=== PATIENT | male | born 1965 | race Caucasian/White ===

== ENCOUNTER 2017-03-26 22:25 | Inpatient (IN) ==
[2017-03-27] MEDS ORDERED: Ondansetron ODT 4 MG TAB.RAPDIS SL PRN (01:09)
[2017-03-27] MEDS ORDERED: Naloxone 0.4 MG/ML INJ IVP PRN (01:09)
[2017-03-27] MEDS ORDERED: Acetaminophen 325 MG TABLET PO PRN (01:09)
[2017-03-27] MEDS ORDERED: *HR* Dextrose 50 % in Water (Syg) 50 ML SYRINGE IVP PRN (01:16)
[2017-03-27] MEDS ORDERED: D5% in Water 1,000 ML IVC PRN (01:16)
[2017-03-27] MEDS ORDERED: Dextrose Gel 15 GM PO PRN ×2 (01:16)
[2017-03-27] MEDS ORDERED: *HR* LORazepam 2 MG/ML VIAL IVP PRN ×3 (01:20)
[2017-03-27] MEDS ORDERED: *HR* Promethazine 25 MG/ML VIAL IVP PRN (01:20)
--- NOTE | 2017-03-27 01:31 | Internal Med History&Physical ---
<Jelani Chapman James - Last Filed: 03/27/17 01:26> Date of Encounter: 03/27/17 Time of Encounter: 01:26 Assessment and Plan (1) Acute kidney failure Current visit: Yes Status: Acute Mr. Lopez 52-year-old male with known diabetes and coronary artery disease and alcohol abuse presented to [facility] and was found to have creatinine of 12 and a GFR 4. His kidney function was not normal prior and are last recorded labs in 2016 demonstrated a GFR greater than 60 and a creatinine less than 1. Contributing factors: Patient admits to nausea, vomiting, diarrhea and poor oral intake for several days. Patient denies any abnormal ingestions, abnormal toxins or other exposures. He has been taking his medications including metformin as prescribed. Given the severe D of his acute kidney injury there is concern for prerenal injury and cannot rule out autoimmune. - Patient appears to be slightly fluid overloaded and not really appreciating dehydration. He has received 1 L normal saline. Plan: - Repeat CBC and CMP. - Urine sodium, urine osmolality, urine creatinine, urine protein - Strict intake and output monitoring - Avoid nephrotoxic medications and renally dose antibiotics - Renal ultrasound - Nephrology consult - Nothing by mouth now (2) Diabetes Current visit: Yes Status: Acute Patient has type 2 diabetes which he takes metformin and Lantus 4. Previous history of pancreatic cyst and post surgery he developed diabetes. - Glucose is stable. Plan: - Before meals at bedtime glucose checks - Nothing by mouth now, diabetic diet when patient is able to resume diet. (3) Coronary artery disease Current visit: Yes Status: Acute Patient is a history of coronary artery disease, coronary stents 2, risk factors include hypertension, hyperlipidemia, diabetes, significant family history of coronary artery disease. Plan: - Continue statin. (4) Hypertension Current visit: Yes Status: Acute Patient is a history of hypertension. Blood pressure was stable at the time of admission. Plan: - Due to renal failure will hold lisinopril and Cozaar - Continue calcium channel lonnie and beta lonnie. - 10 mg hydralazine IV every 6 hours when necessary for systolic blood pressure greater than 160 (5) Hyperlipidemia Current visit: Yes Status: Acute Stable. (6) Alcohol abuse Current visit: Yes Status: Acute Patient admits to drinking 1 quart of vodka and a 6 pack of beer per day. Previous history of withdrawals. Patient went through detox in 2013 but relapsed. Plan: - [facility] protocol - seizure precautions - monitor mental status (7) DVT prophylaxis Current visit: Yes Status: Acute SQ heparin 5000units Q8hrs Internal Medicine - H&P: HPI Chief complaint: low blood sugar Admitted From: Emergency Dept Plans for Post Hospital Care: Home History of present illness: Mr. Lopez is a 52 year old male pmhx CAD, Coronary stents X2, DM, HLD, HTN, alcohol abuse, previous tobacco abuse was transferred from [facility] after he was found to have a creatinine of 12 and a GFR of 4. He states that 4 days ago he was not feeling really well and had some abdominal discomfort and bloating that was associated with lack of appetite. He said the following morning he had nausea and vomiting and diarrhea. The diarrhea has persisted but has improved. He denies any recent nausea or vomiting but has not had an appetite and has not been drinking much water. He denies any changes in his diet but says he does not eat the best in his diet includes lunch meats and similar foods. He also drinks 1 pint of vodka and a 6 pack of beer daily. He has had withdrawals in the past and went through detox in 2014 but relapsed. He denies any history of renal failure or ever having to follow up with nephrology. He denies any recent illnesses, burning or blood in his urine. He denies any recent traumatic events including falling, laying on the ground for long periods of time or getting hit with any objects. He does not have any abnormal ingestions of chemical or different holistic products. He had associated symptoms of abdominal swelling and ankle swelling. Overall he has not been feeling himself for the last week. He states that he continues to have urinary output and did not really notice much difference. He quit smoking a month ago. Currently he denies any headaches, fevers, chills, change in vision, sore throat, chest pain palpitations shortness of breath muscle weakness or muscle cramping. He denies taking any NSAIDs or Tylenol recently. He has been using a decongestant daily for several weeks. Past Med Surg Social Fam HX - Past Medical History Medical history: COPD, coronary artery disease, diabetes, hyperlipidemia, hypertension, renal disease Psychiatric history: no psych history - Social History Smoking Status: Former smoker Smokeless Tobacco Status: No Alcohol use: heavy Drug use: none - Family History Father Living Status: Hx Family Cardiac Disorders: Yes Internal Medicine - H&P: Meds Aspirin [Lo-Dose Aspirin EC] 81 mg PO DAILY 03/27/17 [History] Lantus Solostar units 03/27/17 [History] Lexapro 20 mg PO DAILY 03/27/17 [History] Losartan Potassium [Cozaar] 100 mg PO DAILY 03/27/17 [History] Metoprolol [Lopressor] 100 mg PO BID 03/27/17 [History] Rosuvastatin [Crestor] 20 mg PO HS 03/27/17 [History] amLODIPine [Norvasc] 5 mg PO DAILY 03/27/17 [History] hydroCHLOROthiazide [Hydrochlorothiazide] 25 mg PO DAILY 03/27/17 [History] metFORMIN [Glucophage] 1,000 mg PO BIDWM 03/27/17 [History] Allergies Penicillins [PCN] Allergy (Verified 03/27/17 00:32) Rash All Systems PM: A 10-system review of systems was performed and is negative for pertinent findings except as documented above in the HPI. - Constitutional Constitutional: no chills, no fever(s), no night sweats - EENT Eyes: no change in vision, no discharge, no pain, no photophobia Ears: no ear discharge, no ear pain, no tinnitus Nose, mouth and throat: no dysphagia, no nasal discharge, no neck pain, no sore throat - Cardiovascular Cardiovascular ROS IM: no chest pain, no diaphoresis, no dyspnea, no lightheadedness, no palpitations, no syncope - Respiratory Respiratory: no cough, no dyspnea, no wheezing, no excessive phlegm production - Gastrointestinal Gastrointestinal: abdominal pain, bloating, diarrhea, nausea, vomiting, no hematemesis, no hematochezia, no melena - Genitourinary Genitourinary ROS male: no difficulty urinating, no hematuria, no nocturia, no urinary frequency, no urinary incontinence - Musculoskeletal Musculoskeletal ROS IM: no numbness, no tingling - Integumentary Integumentary IM: no rash, no unusual bruising - Neurological Neurological ROS: no confusion, no convulsions, no focal weakness, no numbness, no tingling, no tremor(s) - Psychiatric Psychiatric: no confusion, no depression - Hematologic/Lymphatic Hematologic/Lymphatic: no easy bruising - Constitutional Vitals: Temp Pulse Resp BP Pulse Ox 97.6 F 92 16 138/78 98 03/27/17 00:34 03/27/17 00:34 03/27/17 00:34 03/27/17 00:34 03/27/17 00:34 Exam: General: Patient alert, awake, oriented 3, interactive, in no acute distress HEENT: Normocephalic, atraumatic, pupils equal reactive to light, nasal cavity patent and open septum median position, oral mucosa moist, uvula midline, neck supple trachea midline no palpable lymphadenopathy, no thyromegaly. Chest: Symmetric bilateral correlating with respiratory effort, effort nonlabored. Cardiac: Regular rate and rhythm, positive S1 and S2. no bruits appreciated bilateral carotids, Radial pulses 2+ bilateral, posterior tibial and dorsal pedal pulses 2+ bilateral. Mild JVD bilaterally Respiratory: Clear to auscultation all lung moreno Abdomen: Soft, nontender, positive bowel sounds, no palpable masses appreciated on examination. No fluid wave Extremities: Symmetric bilateral, bilateral lower extremities with trace ankle edema. patient moving all 4 extremities spontaneously. Neurologic: No focal deficits appreciated on examination. Face symmetric, muscle strength symmetric bilateral upper and lower extremities. <MaloneyMeaganhumberto Hopper - Last Filed: 03/27/17 02:51> Date of Encounter: 03/27/17 Internal Medicine - H&P: HPI History of present illness: Mr. Lopez is a 52 year old male All Systems PM: A 10-system review of systems was performed and is negative for pertinent findings except as documented above in the HPI. - Constitutional Vitals: Temp Pulse Resp BP Pulse Ox 97.6 F 92 16 138/78 98 03/27/17 00:34 03/27/17 00:34 03/27/17 00:34 03/27/17 00:34 03/27/17 00:34 Internal Med - H&P Results - Labs CBC & Chem 7: 03/27/17 01:30 03/27/17 01:30 Labs: Short CBC 03/27/17 Range/Units 01:30 WBC 9.5 (4.3-11.1) K/mcL Hgb 12.1 L (12.9-16.9) g/dL Hct 36.1 L (37.5-50.1) % Plt Count 354 (140-400) K/mcL Neutrophils # 7.1 (1.6-8.9) K/mcL BMP 03/27/17 01:30 Sodium 132 L Potassium 5.6 H Chloride 101 Carbon Dioxide 13 L BUN 83 H Creatinine 12.04 H Glucose 165 H Calcium 9.2 Liver Function 03/27/17 Range/Units 01:30 Total Bilirubin 0.5 (0.2-1.2) mg/dL AST 18 (5-34) Units/L ALT 22 (0-55) Units/L Alkaline Phosphatase 53 (38-126) Units/L Albumin 3.3 L (3.5-5.0) g/dL - Attending Attestation I examined this patient and my medical decision-making was reviewed with the Resident Physician. I agree with the documented findings, disposition and treatment plan as described except to the extent set forth below. 52 yo with worsening abdominal and ankle swelling since saturday. Decreased urine output noted through the weekend. Presented to [facility] and found JACQUELINE. Suspect pre-renal and ATN. Reported some diarrhea prior. On anti-HTN, ARB, metformin ROS noted alcoholism. General - AAO x 3 Psych - Appropriate affect/speech. No agitation Eyes - YUNIEL. Eye lids intact. No scleral icterus ENT - Oral mucosa pink, dentition intact. External ear clear/dry/intact. No thyromegaly Lymphatics - No cervical/inguinal lympadenopathy Neuro - No gross peripheral or central neuro deficits with intact CN 2-12 exam Heart - Sinus. RRR. S1 and S2 present. No added HS/murmurs appreciated. No elevated JVD appreciated. +1 b/l LE calf edema Lung - Adequate air entry b/l, No crackes/wheezes appreciated GI - Soft, non-tender. Increase abdominal girth. No hepatosplenomegaly/ ascities. BS+ - No CVA/suprapubic tenderness or palpable bladder distension Skin - Intact. No rash/petechiae/ecchymosis. Warm extremities MSK - Joints with normal ROM. No joint swellings ROS 14 point review of systems reviewed. Pertinent positive or negative as per HPI or otherwise reviewed as negative A/P ATN - likely pre-renal - IVF - I/Os, garcia - consult renal - US doppler to r/o post-renal DMII - hold oral agent. ISS CAD s/p stent 2002 HTN
[2017-03-27 01:38] LABS: Basophils % 0.4 %; Eosinophils # 0.1 K/mcL (0.0-0.6); Eosinophils % 0.5 %; Hematocrit 36.1 % (37.5-50.1); Hemoglobin 12.1 g/dL (12.9-16.9); Immature Granulocytes % 0.5 % (0-4); Immature Platelets 3.8 % (1.1-6.1); Lymphocytes # 1.4 K/mcL (0.6-4.6); Lymphocytes % 14.7 %; Mean Corpuscular HGB Conc 33.5 g/dL (31.6-35.5); Mean Corpuscular Hemoglobin 32.4 pg (28.0-33.3); Mean Corpuscular Volume 96.5 fL (83.0-100.0); Mean Platelet Volume 10.1 fL (9.4-12.4); Monocytes # 0.8 K/mcL (0.0-1.3); Monocytes % 8.8 %; Neutrophils # 7.1 K/mcL (1.6-8.9); Platelet Count 354 K/mcL (140-400); Red Blood Count 3.74 M/mcL (4.19-5.50); Red Cell Distribution Width 13.6 % (11.5-14.5); Segmented Neutrophils % 75.1 %
[2017-03-27 01:53] LABS: Albumin 3.3 g/dL (3.5-5.0); Albumin/Globulin Ratio 0.9 (1.1-2.2); Bilirubin,Total 0.5 mg/dL (0.2-1.2); Calcium 9.2 mg/dL (8.6-10.8); Globulin 3.5 g/dL (2.4-3.5); Magnesium 1.5 mg/dL (1.6-2.6); Phosphorous 6.8 mg/dL (2.3-4.7); Total Protein 6.8 g/dL (6.0-8.3)
[2017-03-27 01:58] LABS: Potassium 5.6 mEq/L (3.5-4.5)
[2017-03-27] MEDS ORDERED: *HR* Dextrose 50 % in Water (Syg) 50 ML SYRINGE IVP ONE (03:08)
[2017-03-27] MEDS ORDERED: Insulin Human Regular 10 UNIT in 0.9 % Sodium Chloride 10 ML IV ONE (03:08)
[2017-03-27] MEDS ORDERED: Calcium Gluconate 2,000 MG in D5% in Water 100 ML IVPB ONE (03:09)
[2017-03-27] MEDS ORDERED: Magnesium Sulfate 2 GM in D5% in Water 100 ML IVPB ONE (03:10)
[2017-03-27] MEDS: 0.9 % Sodium Chloride 1,000 ML IVC SCH ×3 (04:21→21:28)
[2017-03-27] MEDS ORDERED: *HR* Heparin 5,000 UNIT/ML VIAL SQ SCH (06:00)
[2017-03-27 06:14] LABS: Basophils # 0.1 K/mcL (0.0-0.2); Basophils % 0.6 %; Eosinophils # 0.2 K/mcL (0.0-0.6); Eosinophils % 1.6 %; Hematocrit 33.9 % (37.5-50.1); Hemoglobin 11.4 g/dL (12.9-16.9); Immature Granulocytes % 0.4 % (0-4); Mean Corpuscular HGB Conc 33.6 g/dL (31.6-35.5); Mean Corpuscular Hemoglobin 32.1 pg (28.0-33.3); Mean Corpuscular Volume 95.5 fL (83.0-100.0); Mean Platelet Volume 10.1 fL (9.4-12.4); Monocytes # 1.3 K/mcL (0.0-1.3); Monocytes % 13.4 %; Neutrophils # 6.1 K/mcL (1.6-8.9); Platelet Count 315 K/mcL (140-400); Red Blood Count 3.55 M/mcL (4.19-5.50); Red Cell Distribution Width 13.5 % (11.5-14.5)
[2017-03-27 06:27] LABS: Albumin/Globulin Ratio 0.9 (1.1-2.2); Bilirubin,Total 0.4 mg/dL (0.2-1.2); Calcium 9.3 mg/dL (8.6-10.8); Globulin 3.2 g/dL (2.4-3.5); Magnesium 2.2 mg/dL (1.6-2.6); Total Protein 6.2 g/dL (6.0-8.3)
[2017-03-27 06:28] LABS: Potassium 4.4 mEq/L (3.5-4.5)
[2017-03-27] MEDS: Insulin LISPRO 300 UNITS/3 ML VIAL SQ SCH ×4 (07:44→20:50)
[2017-03-27] MEDS: amLODIPine 5 MG TABLET PO SCH (07:44)
[2017-03-27] MEDS: Metoprolol 100 MG TABLET PO SCH ×2 (07:44→20:43)
[2017-03-27] MEDS: Aspirin Enteric Coated 81 MG Tablet PO SCH (07:44)
[2017-03-27] MEDS: *HR* Heparin 5,000 UNIT/ML VIAL SQ SCH ×3 (07:45→23:25)
--- NOTE | 2017-03-27 08:50 | Nephrology Consult Note ---
Date of Encounter: 03/27/17 Time of Encounter: 08:48 Assessment and Plan (1) Acute kidney failure Current Visit: Yes Status: Acute The patient has a clinical picture of acute kidney injury in the setting of abdominal cramping several episodes of diarrhea and vomiting and decreased oral intake. During a. The patient continued to take his antihypertensive medications. Certainly his acute kidney injury could be related to decreased oral intake and GI losses and volume depletion while taking antihypertensive medications. Other etiologies need to be ruled out. Post renal obstruction needs to be ruled out. Intrinsic renal disease also needs to be ruled out. I requested a urinalysis to evaluate for hematuria and/or proteinuria. Renal ultrasound I believe has been done. In the meantime I would continue to keep the patient on maintenance IV fluids currently 125 mL per hour. ZECHARIAH inhibitor and angiotensin lonnie should be placed on hold. Nephrotoxins should be avoided. We will monitor the patient's renal function on a daily basis. Qualifiers: Acute renal failure type: unspecified Qualified Code(s): N17.9 - Acute kidney failure, unspecified (2) Coronary artery disease Current Visit: Yes Status: Acute Qualifiers: Coronary Disease-Associated Artery/Lesion type: sh[place] artery [place] vs. transplanted heart: shawnee heart Associated angina: without angina Qualified Code(s): I25.10 - Atherosclerotic heart disease of shawnee coronary artery without angina pectoris (3) Hypertension Current Visit: Yes Status: Acute Qualifiers: Hypertension type: essential hypertension Qualified Code(s): I10 - Essential (primary) hypertension (4) Hyperlipidemia Current Visit: Yes Status: Acute Qualifiers: Hyperlipidemia type: other hyperlipidemia Qualified Code(s): E78.4 - Other hyperlipidemia (5) Alcohol abuse Current Visit: Yes Status: Acute History of Present Illness - History of Present Illness I have made 3 visits to the patient's room. The first time he was in the bathroom. The last 2 times he was off the floor. I did have an opportunity speak to the patient's . The patient's reports that since this past Saturday the patient had developed some abdominal discomfort described as cramping pain. He thought he had some type of GI illness. She reports that he had 2 episodes of diarrhea and 2 episodes of vomiting. His appetite was poor. He eventually presented to the [facility] emergency room because of abdominal swelling or bloating along with swelling of the lower extremities and a blood sugar of 30. It was during that emergency room visit that the patient was noted to have a serum creatinine of approximately 12. He subsequently was sent to [place] admitted to the hospital for further evaluation. Review of previous labs shows that the patient had a creatinine of 0.99 on 03/12/2016. Medical records indicate he has a history of diabetes hypertension coronary disease and alcohol abuse. Additional history will be obtained when the patient returns to his room. Of note the patient will need to have a urinalysis done as soon as possible to see if he has any significant hematuria or proteinuria suggesting intrinsic renal disease. The patient was seen on this day at approximately 10 AM. Patient relates a history similar to above. He also states that over the past several days his oral intake had been less. He denies any use of any nonsteroidal anti- inflammatories. He does say he noticed a a slowing of the urinary stream over the past week. Currently he denies any abdominal pain nausea or vomiting. He denies any history of hematuria proteinuria or kidney stones. His father was on dialysis in the setting of what sounds like vascular disease and diabetes. His father subsequently . Patient denies any new medications over the past several months. He denies any skin rashes. 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 He relates no previous history of renal disease. He does have reported history of diabetes for the past 10 years or so. It is unclear if he has diabetic retinopathy. He also reports a history of hypertension. He did not check his blood pressure during the several days that he was ill and not eating or drinking normally. Past Med Surg Social Fam HX - Past Medical History Medical history: COPD, coronary artery disease, diabetes, hyperlipidemia, hypertension, renal disease Psychiatric history: no psych history - Social History Smoking Status: Former smoker Smokeless Tobacco Status: No Alcohol use: heavy Drug use: none - Family History Father Living Status: Hx Family Cardiac Disorders: Yes Medications and Allergies Aspirin [Lo-Dose Aspirin EC] 81 mg PO DAILY 03/27/17 [History] Lantus Solostar units 03/27/17 [History] Lexapro 20 mg PO DAILY 03/27/17 [History] Losartan Potassium [Cozaar] 100 mg PO DAILY 03/27/17 [History] Metoprolol [Lopressor] 100 mg PO BID 03/27/17 [History] Rosuvastatin [Crestor] 20 mg PO HS 03/27/17 [History] amLODIPine [Norvasc] 5 mg PO DAILY 03/27/17 [History] hydroCHLOROthiazide [Hydrochlorothiazide] 25 mg PO DAILY 03/27/17 [History] metFORMIN [Glucophage] 1,000 mg PO BIDWM 03/27/17 [History] Allergies Penicillins [PCN] Allergy (Verified 03/27/17 00:32) Rash Review of Systems Constitutional: as per HPI, weakness Eyes: bilateral: blurred vision (patient denies), diplopia (patient denies) Nose, mouth and throat: no dizziness, no headache(s) Cardiovascular: no chest pain, no palpitations Respiratory: no cough, no dyspnea Gastrointestinal: abdominal pain, bloating, cramping, no change in bowel habits Genitourinary Male: change in urinary stream Musculoskeletal: no muscle weakness, no numbness Integumentary: no hirsutism, no striae Neurological: as per HPI Psychiatric: no depression, no difficulty concentrating Endocrine: as per HPI Hematologic/Lymphatic: no easy bruising, no lymphadenopathy Exam - Vital Signs Vital signs: Initial Vital Signs Temp Pulse Resp BP Pulse Ox 97.6 F 92 16 138/78 98 03/27/17 00:34 03/27/17 00:34 03/27/17 00:34 03/27/17 00:34 03/27/17 00:34 Vital Signs - Last 8 Hours Temp Pulse Resp BP Pulse Ox 03/27/17 07:25 97.6 F 86 16 124/76 93 03/27/17 04:02 98.2 F 93 16 129/79 95 Intake and Output 03/26/17 03/27/17 03/27/17 23:59 07:59 15:59 Intake Total 0 / 0 Output Total 800 / 800 Balance -800 / -800 Intake: Oral 0 / 0 Output: Urine 800 / 800 Urethral (Rod) 300 / 300 Other: Weight 75.863 kg Blood Glucose* 126 Patient Weight 03/27/17 23:59 Weight 75.863 kg - General Appearance Exam: The patient is alert and oriented. He is in no acute distress. Vital signs are stable. Neck is supple. Lungs clear to auscultation. Heart regular rate and rhythm without any murmurs or S4 gallops clicks or rubs. Abdomen demonstrates normal bowel sounds. Abdomen is soft. There is no guarding or rigidity. There is mild generalized tenderness but nothing severe. Lower extremity show no peripheral edema. Skin shows no abnormal skin rashes. Results - Lab Results 03/27/17 06:05 03/27/17 06:05 Most recent lab results Calcium 9.3 mg/dL (8.6-10.8) 03/27/17 06:05 Phosphorus 6.8 mg/dL (2.3-4.7) H 03/27/17 01:30 Magnesium 2.2 mg/dL (1.6-2.6) 03/27/17 06:05 Consult Discharge Plan - Plan Referrals: Toby Shirley MD [Primary Care Provider] -
[2017-03-27 12:44] LABS: Bilirubin,Urine Negative (Negative); Blood,Urine Large (Negative); Clarity,Urine Cloudy (Clear); Color,Urine Yellow (Yellow); Glucose,Urine (UA) Normal (Normal); Ketones,Urine Negative (Negative); Leukocyte Esterase,Urine Trace (Negative); Nitrite,Urine Negative (Negative); Protein,Urine >=300 mg/dL (Neg-Trace); Specific Gravity,Urine 1.014 (1.010-1.025); Urobilinogen,Urine Normal (Normal)
[2017-03-27 12:46] LABS: Bacteria,Urine None Seen per hpf (None-Few); Hyaline Casts,Urine None Seen per lpf (None-Few); RBC,Urine TNTC per hpf (0-3); Squamous Epithelial Cell,Urine Many per lpf (None-Few); WBC,Urine 15-30 per hpf (0-3)
--- NOTE | 2017-03-27 15:09 | Internal Med Progress Note ---
<CorbydouglasJose mcfadden - Last Filed: 03/27/17 15:07> Date of Encounter: 03/27/17 Time of Encounter: 11:00 - Assessment and plan (1) Acute kidney failure Current Visit: Yes Status: Acute Assessment and plan: - BUN/creatinine of 83/11.76 this morning, mild improved since yesterday. Potassium 4.4 we will continue to monitor - Urology consulted, appreciate recommendations - Held lisinopril, metformin - Normal saline at 125 mL per hour - Renal ultrasound revealed no evidence for hydronephrosis - Urine labs obtained from [facility] relatively benign. Without Signs of infection , casts Qualifiers: Acute renal failure type: unspecified Qualified Code(s): N17.9 - Acute kidney failure, unspecified (2) Alcohol abuse Current Visit: Yes Status: Acute Assessment and plan: - CIWA protocol in place Patient is not currently required Ativan for sedation Patient states his last drink was Saturday (3) Diabetes Current Visit: Yes Status: Acute Assessment and plan: - Sliding insulin scale - Blood sugar this morning was 157 - He states he has been running hypoglycemic secondary to decreased oral intake in the past week Qualifiers: Diabetes mellitus type: type 2 Diabetes mellitus complication status: with unspecified complications 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 transplanted heart: [place] heart Associated angina: without angina Qualified Code(s): I25.10 - Atherosclerotic heart disease of [place] coronary artery without angina pectoris (5) DVT prophylaxis Current Visit: Yes Status: Acute Assessment and plan: Heparin 5000 units subcutaneously - Time Spent With Patient 25 - 35 minutes - Subjective Interval history: This note is not for billing purposes. Mr. Lopez was seen and examined at bedside this morning. He states that he is feeling good, with complaints only of mild lower extremity swelling and dysuria. He denies any symptoms of nausea , vomiting, diarrhea, fevers, chills. He does state that he has been experiencing some GI distress including vomiting and diarrhea for the past week before admission. He also states that he has not been eating well for the past week. He denies any history of heavy drinking, but states that his last drink was Saturday and it contained approximately 1/5 of vodka. He denies any history of alcohol withdrawals. - Constitutional Vitals: Temp Pulse Resp BP Pulse Ox 97.7 F 78 16 120/81 95 03/27/17 11:09 03/27/17 11:09 03/27/17 11:09 03/27/17 11:09 03/27/17 11:09 Exam: Gen.: Vitals noted. No acute distress. AAOx3 HEENT: PERRL/EOMI, oropharynx clear, Normocephalic, atraumatic Neck: Supple. No adenopathy. Cardiac: RRR, no murmur, +S1/S2 Pulmonary: Mild Rales in left middle. no wheezes, or rhonchi, equal chest expansion Abdomen: soft, mildly tender to palpation left lower quadrant, epigastric region , BS noted, no guarding Back: Mildly tender in left CVA MSK: ROM intact, no joint swelling noted Extremities: no evidence of BLE edema, nontender calf, no cyanosis or clubbing Neuro: A&Ox3, moves all extremities, no focal deficits Psych: Appropriate mood and behavior Internal Medicine: Result - Labs CBC & Chem 7: 03/27/17 06:05 03/27/17 06:05 Labs: Short CBC 03/27/17 03/27/17 Range/Units 01:30 06:05 WBC 9.5 9.6 (4.3-11.1) K/mcL Hgb 12.1 L 11.4 L (12.9-16.9) g/dL Hct 36.1 L 33.9 L (37.5-50.1) % Plt Count 354 315 (140-400) K/mcL Neutrophils # 7.1 6.1 (1.6-8.9) K/mcL BMP 03/27/17 03/27/17 01:30 06:05 Sodium 132 L 133 L Potassium 5.6 H 4.4 D Chloride 101 102 Carbon Dioxide 13 L 19 BUN 83 H 83 H Creatinine 12.04 H 11.76 H Glucose 165 H 157 H Calcium 9.2 9.3 Liver Function 03/27/17 03/27/17 Range/Units 01:30 06:05 Total Bilirubin 0.5 0.4 (0.2-1.2) mg/dL AST 18 16 (5-34) Units/L ALT 22 17 (0-55) Units/L Alkaline Phosphatase 53 49 (38-126) Units/L Albumin 3.3 L 3.0 L (3.5-5.0) g/dL Urine 03/27/17 Range/Units 12:25 Urine Color Yellow (Yellow) Urine Clarity Cloudy A (Clear) Urine pH 6.0 (5.0-8.0) pH Units Ur Specific [place] 1.014 (1.010-1.025) Urine Protein >=300 H (Neg-Trace) mg/dL Urine Glucose (UA) Normal (Normal) mg/dL - Impressions Impressions Retroperitoneum Ultrasound 03/27/17 08:30 IMPRESSION: No hydronephrosis noted to account for renal failure D/ / Ayan Garcia MD / Ayan Garcia MD Interpreting Provider: Ayan Garcia MD Consult Discharge Plan - Plan Referrals: Toby Shirley MD [Primary Care Provider] - (call appt. upon discharge) <Jose Argueta - Last Filed: 03/27/17 19:03> Date of Encounter: 03/27/17 - Constitutional Vitals: Temp Pulse Resp BP Pulse Ox 98.4 F 79 17 123/78 95 03/27/17 15:15 03/27/17 15:15 03/27/17 15:15 03/27/17 15:15 03/27/17 15:15 Internal Medicine: Result - Labs CBC & Chem 7: 03/27/17 06:05 03/27/17 06:05 Labs: Short CBC 03/27/17 03/27/17 Range/Units 01:30 06:05 WBC 9.5 9.6 (4.3-11.1) K/mcL Hgb 12.1 L 11.4 L (12.9-16.9) g/dL Hct 36.1 L 33.9 L (37.5-50.1) % Plt Count 354 315 (140-400) K/mcL Neutrophils # 7.1 6.1 (1.6-8.9) K/mcL BMP 03/27/17 03/27/17 01:30 06:05 Sodium 132 L 133 L Potassium 5.6 H 4.4 D Chloride 101 102 Carbon Dioxide 13 L 19 BUN 83 H 83 H Creatinine 12.04 H 11.76 H Glucose 165 H 157 H Calcium 9.2 9.3 Liver Function 03/27/17 03/27/17 Range/Units 01:30 06:05 Total Bilirubin 0.5 0.4 (0.2-1.2) mg/dL AST 18 16 (5-34) Units/L ALT 22 17 (0-55) Units/L Alkaline Phosphatase 53 49 (38-126) Units/L Albumin 3.3 L 3.0 L (3.5-5.0) g/dL Urine 03/27/17 Range/Units 12:25 Urine Color Yellow (Yellow) Urine Clarity Cloudy A (Clear) Urine pH 6.0 (5.0-8.0) pH Units Ur Specific [place] 1.014 (1.010-1.025) Urine Protein >=300 H (Neg-Trace) mg/dL Urine Glucose (UA) Normal (Normal) mg/dL - Impressions Impressions Retroperitoneum Ultrasound 03/27/17 08:30 IMPRESSION: No hydronephrosis noted to account for renal failure D/ / Ayan Garcia MD / Ayan Garcia MD Interpreting Provider: Ayan Garcia MD - Attending Attestation I examined this patient and my medical decision-making was reviewed with the Resident Physician on 03/27/17. I agree with the documented findings, disposition and treatment plan as described except to the extent set forth below. Pt was admitted earlier this AM for acute renal failure. He is currently in work up for causes and receiving IV fluids. Plan as detailed above and in H&P.
[2017-03-28 04:55] LABS: Basophils # 0.1 K/mcL (0.0-0.2); Basophils % 0.6 %; Eosinophils # 0.3 K/mcL (0.0-0.6); Eosinophils % 2.9 %; Hematocrit 33.3 % (37.5-50.1); Hemoglobin 11.1 g/dL (12.9-16.9); Immature Granulocytes % 0.5 % (0-4); Lymphocytes # 1.7 K/mcL (0.6-4.6); Lymphocytes % 16.8 %; Mean Corpuscular HGB Conc 33.3 g/dL (31.6-35.5); Mean Corpuscular Hemoglobin 32.3 pg (28.0-33.3); Mean Corpuscular Volume 96.8 fL (83.0-100.0); Mean Platelet Volume 10.5 fL (9.4-12.4); Monocytes # 1.3 K/mcL (0.0-1.3); Monocytes % 13.1 %; Neutrophils # 6.7 K/mcL (1.6-8.9); Platelet Count 324 K/mcL (140-400); Red Blood Count 3.44 M/mcL (4.19-5.50); Red Cell Distribution Width 13.8 % (11.5-14.5); Segmented Neutrophils % 66.1 %
[2017-03-28 05:13] LABS: Albumin 2.7 g/dL (3.5-5.0); Albumin/Globulin Ratio 0.8 (1.1-2.2); Bilirubin,Total 0.4 mg/dL (0.2-1.2); Calcium 8.4 mg/dL (8.6-10.8); Globulin 3.3 g/dL (2.4-3.5); Potassium 4.5 mEq/L (3.5-4.5)
[2017-03-28] MEDS: 0.9 % Sodium Chloride 1,000 ML IVC SCH ×3 (05:51→22:01)
--- NOTE | 2017-03-28 08:46 | Nephrology Progress Note ---
Date of Encounter: 03/28/17 Time of Encounter: 08:20 - Assessment and Plan (1) Acute kidney failure Current Visit: Yes Status: Acute JACQUELINE most likely related to decreased oral intake, volume depletion, continued use of antihypertensive and GI losses. Renal fct improving, creat 10.57. Documented urine output 1700cc last 24 hours. Continue IV fluids. Proteinuria, hematuria concerning for GN, will start GN workup. Qualifiers: Acute renal failure type: unspecified Qualified Code(s): N17.9 - Acute kidney failure, unspecified Subjective Interval history: Sitting up in bed, eating breakfast. at bedside. States feeling better. Denies diarrhea today. Rod with light barlow urine, no clots noted. Objective - Vital Signs Vital signs: Vital Signs Temp Pulse Resp BP Pulse Ox 03/28/17 08:22 97.7 F 78 17 131/80 96 03/28/17 04:21 97.9 F 75 16 114/72 91 03/28/17 00:36 97.6 F 75 16 102/64 91 03/27/17 20:30 97.4 F L 79 16 131/88 95 03/27/17 15:15 98.4 F 79 17 123/78 95 03/27/17 11:09 97.7 F 78 16 120/81 95 Intake and Output 03/27/17 03/28/17 03/28/17 23:59 07:59 15:59 Intake Total 900 / 900 900 / 900 Output Total 1000 / 1000 Balance 900 / 900 -100 / -100 Intake: IV Fluids 900 / 900 900 / 900 0.9 % Sodium Chloride 1, 900 / 900 900 / 900 000 ML @ 125 mls/hr IVC . Q8H [facility] Rx#:[id number] Oral 0 / 0 Output: Catheter 1000 / 1000 Other: Weight 76.5 kg Blood Glucose* 182 136 Patient Weight 03/28/17 23:59 Weight 76.5 kg - General Appearance General appearance: Present: well-developed, well-nourished, appears started age EENT: Present: mucous membranes moist Neck: Present: no JVD Respiratory: Present: clear Cardiology: Present: no edema, regular rate, regular rhythm Gastrointestinal: Present: normoactive bowel sounds, no tenderness, no guarding Integumentary: Present: warm and dry Neurologic: Present: alert and oriented x3 Psychiatric: Present: mood/affect appropriate, cooperative - Lab 03/28/17 04:16 03/28/17 04:16 Most recent lab results Calcium 8.4 mg/dL (8.6-10.8) L 03/28/17 04:16 Phosphorus 6.8 mg/dL (2.3-4.7) H 03/27/17 01:30 Magnesium 2.2 mg/dL (1.6-2.6) 03/27/17 06:05 Consult Discharge Plan - Plan Referrals: Toby Shirley MD [Primary Care Provider] - (call appt. upon discharge)
[2017-03-28] MEDS: Insulin LISPRO 300 UNITS/3 ML VIAL SQ SCH ×4 (09:23→20:36)
[2017-03-28] MEDS: Metoprolol 100 MG TABLET PO SCH ×2 (09:36→20:36)
[2017-03-28] MEDS: *HR* Heparin 5,000 UNIT/ML VIAL SQ SCH ×2 (09:36→17:03)
[2017-03-28] MEDS: Aspirin Enteric Coated 81 MG Tablet PO SCH (09:36)
[2017-03-28] MEDS: amLODIPine 5 MG TABLET PO SCH (09:36)
[2017-03-28 09:43] LABS: Hepatitis B Surface Antigen Nonreactive (Nonreactive)
[2017-03-28 12:22] LABS: Hepatitis B Surface Antigen Nonreactive (Nonreactive)
--- NOTE | 2017-03-28 15:03 | Internal Med Progress Note ---
<Jose De Souza - Last Filed: 03/28/17 15:00> Date of Encounter: 03/28/17 Time of Encounter: 11:00 - Assessment and plan (1) Acute kidney failure Current Visit: Yes Status: Acute Assessment and plan: - BUN/creatinine of 74/10.57 this morning, mild improved since yesterday, 83/ 11.76. Potassium 4.5 we will continue to monitor and hydrate - Urology consulted, appreciate recommendations. They have ordered additional testing to further evaluate cause of acute renal failure. - Red tinged urine in Rod catheter since yesterday evening, H&H stable at 11.1 /33.3, we will continue to monitor for time being. - Held lisinopril, metformin - Renal ultrasound revealed no evidence for hydronephrosis indicating postobstructive causes, he is normal in size indicating no fibrosis of the kidneys. - Urine labs obtained from [facility] relatively benign. Without Signs of infection , casts Qualifiers: Acute renal failure type: unspecified Qualified Code(s): N17.9 - Acute kidney failure, unspecified (2) Alcohol abuse Current Visit: Yes Status: Acute Assessment and plan: - CIWA protocol in place Patient is not currently required Ativan for sedation. 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 transplanted heart: [place] heart Associated angina: without angina Qualified Code(s): I25.10 - Atherosclerotic heart disease of [place] coronary artery without angina pectoris (5) DVT prophylaxis Current Visit: Yes Status: Acute Assessment and plan: Heparin 5000 units subcutaneously - Closely monitored given hematuria, H&H has been stable - Subjective Interval history: This note is not for billing purposes. Mr. Lopez was seen and examined at bedside this morning. He states he is doing quite well this morning. He denies any further episodes of nausea, vomiting, diarrhea. His Rod catheter continues to drain red tinged urine. We also asked him about his home Lexapro usage and he states he has not been taking it for his depression, however his believes that he is. He is agreeable to restarting it. - Constitutional Vitals: Temp Pulse Resp BP Pulse Ox 97.7 F 78 17 131/80 96 03/28/17 08:22 03/28/17 08:22 03/28/17 08:22 03/28/17 08:22 03/28/17 08:22 Exam: Gen.: Vitals noted. No acute distress. AAOx3 HEENT: PERRL/EOMI, oropharynx clear, Normocephalic, atraumatic Neck: Supple. No adenopathy. Cardiac: RRR, no murmur, +S1/S2 Pulmonary: CTA bilaterally, no wheezes, rales or rhonchi, equal chest expansion Abdomen: soft, nontender, BS noted, no guarding : Rod catheter in place with red tinged urine in bag. Back: Resolved right CVA tenderness. Nontender throughout. MSK: ROM intact, no joint swelling noted Extremities: no BLE edema, nontender calf, no cyanosis or clubbing Neuro: A&Ox3, moves all extremities, no focal deficits Psych: Appropriate mood and behavior Internal Medicine: Result - Labs CBC & Chem 7: 03/28/17 04:16 03/28/17 04:16 Labs: Short CBC 03/28/17 Range/Units 04:16 WBC 10.1 (4.3-11.1) K/mcL Hgb 11.1 L (12.9-16.9) g/dL Hct 33.3 L (37.5-50.1) % Plt Count 324 (140-400) K/mcL Neutrophils # 6.7 (1.6-8.9) K/mcL BMP 03/28/17 04:16 Sodium 135 L Potassium 4.5 Chloride 106 Carbon Dioxide 17 L BUN 74 H Creatinine 10.57 H Glucose 118 H Calcium 8.4 L Liver Function 03/28/17 Range/Units 04:16 Total Bilirubin 0.4 (0.2-1.2) mg/dL AST 21 (5-34) Units/L ALT 17 (0-55) Units/L Alkaline Phosphatase 43 (38-126) Units/L Albumin 2.7 L (3.5-5.0) g/dL Consult Discharge Plan - Plan Referrals: Toby Shirley MD [Primary Care Provider] - (call appt. upon discharge) <KendallJose Narinder - Last Filed: 03/28/17 18:32> Date of Encounter: 03/28/17 - Assessment and plan (1) Acute kidney failure Current Visit: Yes Status: Suspected Qualifiers: Acute renal failure type: with acute tubular necrosis Qualified Code(s): N17.0 - Acute kidney failure with tubular necrosis (2) Alcohol abuse Current Visit: Yes Status: Chronic (3) Hypertension Current Visit: Yes Status: Chronic Qualifiers: Hypertension type: essential hypertension Qualified Code(s): I10 - Essential (primary) hypertension (4) Hyperlipidemia Current Visit: Yes Status: Chronic Qualifiers: Hyperlipidemia type: other hyperlipidemia Qualified Code(s): E78.4 - Other hyperlipidemia (5) Coronary artery disease Current Visit: Yes Status: Chronic Qualifiers: Coronary Disease-Associated Artery/Lesion type: [place] artery [place] vs. 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 use Qualified Code(s): E11.8 - Type 2 diabetes mellitus with unspecified complications - Constitutional Vitals: Temp Pulse Resp BP Pulse Ox 97.7 F 78 17 131/80 96 03/28/17 08:22 03/28/17 08:22 03/28/17 08:22 03/28/17 08:22 03/28/17 08:22 Internal Medicine: Result - Labs CBC & Chem 7: 03/28/17 04:16 03/28/17 04:16 Labs: Short CBC 03/28/17 Range/Units 04:16 WBC 10.1 (4.3-11.1) K/mcL Hgb 11.1 L (12.9-16.9) g/dL Hct 33.3 L (37.5-50.1) % Plt Count 324 (140-400) K/mcL Neutrophils # 6.7 (1.6-8.9) K/mcL BMP 03/28/17 04:16 Sodium 135 L Potassium 4.5 Chloride 106 Carbon Dioxide 17 L BUN 74 H Creatinine 10.57 H Glucose 118 H Calcium 8.4 L Liver Function 03/28/17 Range/Units 04:16 Total Bilirubin 0.4 (0.2-1.2) mg/dL AST 21 (5-34) Units/L ALT 17 (0-55) Units/L Alkaline Phosphatase 43 (38-126) Units/L Albumin 2.7 L (3.5-5.0) g/dL - Attending Attestation I examined this patient and my medical decision-making was reviewed with the Resident Physician on 03/28/17. I agree with the documented findings, disposition and treatment plan as described except to the extent set forth below. This note is for billing purposes. Mr. Lopez is currently in observation for acute renal failure due to possible ATN versus other process. He remains moderate to high risk due to potential for worsening renal status. Mr. Lopez feels OK. No worsening of swelling. Making some urine. No nausea or confusion. No fever or chills. at bedside and updated. Exam Alert. Comfortable Mucus membranes dry Heart reg No wheeze or rales Trace edema Abd soft I/P 1. Acute renal failure - work up in progress 2. ETOH 3. DM Further diagnoses and plan as above.
[2017-03-29] MEDS: *HR* Heparin 5,000 UNIT/ML VIAL SQ SCH ×4 (00:44→23:55)
[2017-03-29 04:40] LABS: Hematocrit 31.8 % (37.5-50.1); Hemoglobin 10.5 g/dL (12.9-16.9); Mean Corpuscular Hemoglobin 31.9 pg (28.0-33.3); Mean Corpuscular Volume 96.7 fL (83.0-100.0); Mean Platelet Volume 10.9 fL (9.4-12.4); Platelet Count 332 K/mcL (140-400); Red Blood Count 3.29 M/mcL (4.19-5.50); Red Cell Distribution Width 13.8 % (11.5-14.5)
[2017-03-29 04:54] LABS: Calcium 7.8 mg/dL (8.6-10.8)
[2017-03-29] MEDS: 0.9 % Sodium Chloride 1,000 ML IVC SCH ×3 (05:15→21:26)
[2017-03-29] MEDS: Insulin LISPRO 300 UNITS/3 ML VIAL SQ SCH ×4 (07:27→21:27)
[2017-03-29] MEDS: amLODIPine 5 MG TABLET PO SCH (08:30)
[2017-03-29] MEDS: Aspirin Enteric Coated 81 MG Tablet PO SCH (08:30)
[2017-03-29] MEDS: Metoprolol 100 MG TABLET PO SCH ×2 (08:30→21:27)
--- NOTE | 2017-03-29 10:14 | Nephrology Progress Note ---
Date of Encounter: 03/29/17 Time of Encounter: 09:55 - Assessment and Plan (1) Acute kidney failure Current Visit: Yes Status: Suspected JACQUELINE most likely related to decreased oral intake, volume depletion, continued use of antihypertensive and GI losses. Renal fct slowly improving, creat 9.08. Documented urine output 3700cc last 24 hours. Continue IV fluids. Proteinuria, hematuria concerning for GN. Urine microscopy - tubular epithelial cells, monomorphic RBC's, TNTC RBC's, RBC casts, no nephrotic elements. GN workup in progress. Will watch over weekend, if no improvement will proceed with renal biopsy on Saturday. Patient in agreement. Qualifiers: Acute renal failure type: with acute tubular necrosis Qualified Code(s): N17.0 - Acute kidney failure with tubular necrosis Subjective Interval history: Laying in bed. at bedside. States feeling better. Rod with light barlow urine, no clots noted. 24 hour urine in progress. Discussed GN work up in progress and most likely will need renal biopsy for definitive diagnosis. Patient agreeable to biopsy if needed. Objective - Vital Signs Vital signs: Vital Signs Temp Pulse Resp BP Pulse Ox 03/29/17 07:12 97.8 F 77 16 119/74 94 03/29/17 04:57 97.8 F 75 16 133/82 95 03/28/17 23:40 98.4 F 70 15 123/79 94 03/28/17 20:00 97.6 F 77 16 125/80 96 Intake and Output 03/28/17 03/29/17 03/29/17 23:59 07:59 15:59 Intake Total 1240 / 1240 902 / 902 30 / 30 Output Total 1650 / 1650 1300 / 1300 Balance -410 / -410 -398 / -398 30 / 30 Intake: IV Fluids 1000 / 1000 902 / 902 0.9 % Sodium Chloride 1, 1000 / 1000 902 / 902 000 ML @ 125 mls/hr IVC . Q8H [facility] Rx#:[id number] Oral 240 / 240 30 / 30 Output: Catheter 1650 / 1650 1300 / 1300 Other: Meal Dinner Percent of Meal Consumed 100% Weight 76.52 kg Blood Glucose* 179 127 Patient Weight 03/29/17 23:59 Weight 76.52 kg - General Appearance General appearance: Present: well-developed, well-nourished, appears started age EENT: Present: mucous membranes moist Neck: Present: no JVD Respiratory: Present: clear Cardiology: Present: no edema, regular rate, regular rhythm Gastrointestinal: Present: normoactive bowel sounds, no tenderness Integumentary: Present: warm and dry Neurologic: Present: alert and oriented x3 Psychiatric: Present: mood/affect appropriate, cooperative - Lab 03/29/17 02:53 03/29/17 02:53 Most recent lab results Calcium 7.8 mg/dL (8.6-10.8) L 03/29/17 02:53 Phosphorus 6.8 mg/dL (2.3-4.7) H 03/27/17 01:30 Magnesium 2.2 mg/dL (1.6-2.6) 03/27/17 06:05 Consult Discharge Plan - Plan Referrals: Toby Shirley MD [Primary Care Provider] - (call appt. upon discharge)
--- NOTE | 2017-03-29 10:41 | Internal Med Progress Note ---
<AlmaJose mcfadden - Last Filed: 03/29/17 15:31> Date of Encounter: 03/29/17 Time of Encounter: 09:00 - Assessment and plan (1) Acute kidney failure Current Visit: Yes Status: Suspected Assessment and plan: - BUN/creatinine of 64/9.08 this morning, mild improved since yesterday, 74/ 10.57 . Potassium 4.5 we will continue to monitor and hydrate - Urology consulted, appreciate recommendations. They have ordered additional testing to further evaluate cause of acute renal failure. - Analysis to this point has showed proteinurea, concerning for a possible glomerulonephritis underlying prerenal causes - Held lisinopril, metformin - Renal ultrasound revealed no evidence for hydronephrosis indicating postobstructive causes, he is normal in size indicating no fibrosis of the kidneys taking chronic kidney disease less likely - Per urology, continue to hydrate and monitor for improvement kidney functions. May need biopsy on Saturday if not enough improvement Qualifiers: Acute renal failure type: with acute tubular necrosis Qualified Code(s): N17.0 - Acute kidney failure with tubular necrosis (2) Alcohol abuse Current Visit: Yes Status: Chronic Assessment and plan: - CIWA protocol discontinued today Patient has not required Ativan for sedation since admission. 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 transplanted heart: [place] heart Associated angina: without angina Qualified Code(s): I25.10 - Atherosclerotic heart disease of [place] coronary artery without angina pectoris (5) DVT prophylaxis Current Visit: Yes Status: Acute Assessment and plan: Heparin 5000 units subcutaneously - Closely monitored given hematuria, H&H has been stable - Time Spent With Patient 25 - 35 minutes - Subjective Interval history: Mr. Lopez was seen and examined at bedside this morning with . He states he is doing quite well this morning. He denies any further episodes of nausea, vomiting, diarrhea. He continues to remain asymptomatic. He does report that a friend of his was recently experiencing similar symptoms and was diagnosed with Lyme disease. He does admit to camping every weekend, however he does not number any tick bites, rashes, joint pains out of the normal, confusion, fevers , chills. - Constitutional Vitals: Temp Pulse Resp BP Pulse Ox 97.8 F 77 16 119/74 94 03/29/17 07:12 03/29/17 07:12 03/29/17 07:12 03/29/17 07:12 03/29/17 07:12 Exam: Gen.: Vitals noted. No acute distress. AAOx3 HEENT: PERRL/EOMI, oropharynx clear, Normocephalic, atraumatic Neck: Supple. No adenopathy. Cardiac: RRR, no murmur, +S1/S2 Pulmonary: CTA bilaterally, no wheezes, rales or rhonchi, equal chest expansion Abdomen: soft, nontender, BS noted, no guarding Back: Nontender throughout. : Rod catheter in place, draining indra urine with red tinge MSK: ROM intact, no joint swelling noted Extremities: no BLE edema, nontender calf, no cyanosis or clubbing Neuro: A&Ox3, moves all extremities, no focal deficits Psych: Appropriate mood and behavior Internal Medicine: Result - Labs CBC & Chem 7: 03/29/17 02:53 03/29/17 02:53 Labs: Short CBC 03/29/17 Range/Units 02:53 WBC 10.4 (4.3-11.1) K/mcL Hgb 10.5 L (12.9-16.9) g/dL Hct 31.8 L (37.5-50.1) % Plt Count 332 (140-400) K/mcL BMP 03/29/17 02:53 Sodium 137 Potassium 4.0 Chloride 111 H Carbon Dioxide 16 L BUN 64 H Creatinine 9.08 H Glucose 114 H Calcium 7.8 L Consult Discharge Plan - Plan Referrals: Toby Shirley MD [Primary Care Provider] - (call appt. upon discharge) <Efren Perez - Last Filed: 03/29/17 16:47> Date of Encounter: 03/29/17 - Constitutional Vitals: Temp Pulse Resp BP Pulse Ox 97.8 F 77 16 119/74 94 03/29/17 07:12 03/29/17 07:12 03/29/17 07:12 03/29/17 07:12 03/29/17 07:12 Internal Medicine: Result - Labs CBC & Chem 7: 03/29/17 02:53 03/29/17 02:53 Labs: Short CBC 03/29/17 Range/Units 02:53 WBC 10.4 (4.3-11.1) K/mcL Hgb 10.5 L (12.9-16.9) g/dL Hct 31.8 L (37.5-50.1) % Plt Count 332 (140-400) K/mcL BMP 03/29/17 02:53 Sodium 137 Potassium 4.0 Chloride 111 H Carbon Dioxide 16 L BUN 64 H Creatinine 9.08 H Glucose 114 H Calcium 7.8 L - Attending Attestation I examined this patient and my medical decision-making was reviewed with the Resident Physician on 03/29/17. I agree with the documented findings, disposition and treatment plan as described except to the extent set forth below. Seen and evaluated at bedside with his family he denies new complains he is being managed for JACQUELINE, possibly combination of pre-renal and intrinsic, ATN, non-oliguric, medications (On metformin, diuretics, ARB at home) His renal function is slowly improving Physical exam is unremarkable Labs and Imaging reviewed A/P JACQUELINE: Continue aggressive IVF hydration, follow proteinuria work up, discontinue Rod catheter and mobilize patient. May require renal biopsy, nephrology is following. No evidence of post-renal cause. rest of details as in resident's documentation
[2017-03-29 11:08] LABS: Hepatitis B Surface Antibody 0.29 mIU/mL; Hepatitis C Virus Antibody Nonreactive (Nonreactive)
[2017-03-29 11:21] LABS: Hepatitis A Antibody IgM Nonreactive (Nonreactive); Hepatitis B Core IgM Nonreactive (Nonreactive); Hepatitis C Virus Antibody Nonreactive (Nonreactive)
[2017-03-29 15:05] LABS: Complement Component 3 116 mg/dL (88-201); Complement Component 4 28 mg/dL (10-40)
[2017-03-29 15:07] LABS: Total Volume 24 Hour,Urine 3.05 Liters (0.80-1.80)
[2017-03-29 15:14] LABS: Creatinine 24 Hour,Urine 1.77 g/day (0.71-1.65)
[2017-03-29 15:20] LABS: Creatinine 24 Hour,Urine 1.77 g/day (0.71-1.65); Protein/Creatinine Ratio,Urine 0.93 mg/mg (0-0.20)
[2017-03-30] MEDS: 0.9 % Sodium Chloride 1,000 ML IVC SCH ×2 (05:30→14:57)
[2017-03-30 07:19] LABS: Hematocrit 32.1 % (37.5-50.1); Hemoglobin 10.5 g/dL (12.9-16.9); Mean Corpuscular HGB Conc 32.7 g/dL (31.6-35.5); Mean Corpuscular Hemoglobin 31.8 pg (28.0-33.3); Mean Corpuscular Volume 97.3 fL (83.0-100.0); Mean Platelet Volume 10.8 fL (9.4-12.4); Platelet Count 332 K/mcL (140-400); Red Cell Distribution Width 14.3 % (11.5-14.5)
[2017-03-30 07:35] LABS: Calcium 7.9 mg/dL (8.6-10.8)
[2017-03-30] MEDS: Insulin LISPRO 300 UNITS/3 ML VIAL SQ SCH ×4 (08:21→21:06)
[2017-03-30] MEDS: amLODIPine 5 MG TABLET PO SCH (08:23)
[2017-03-30] MEDS: Metoprolol 100 MG TABLET PO SCH ×2 (08:23→21:05)
[2017-03-30] MEDS: Aspirin Enteric Coated 81 MG Tablet PO SCH (08:23)
[2017-03-30] MEDS: *HR* Heparin 5,000 UNIT/ML VIAL SQ SCH ×2 (08:23→17:22)
--- NOTE | 2017-03-30 08:58 | Nephrology Progress Note ---
Date of Encounter: 03/30/17 Time of Encounter: 08:35 - Assessment and Plan (1) Acute kidney failure Current Visit: Yes Status: Suspected JACQUELINE most likely related to decreased oral intake, volume depletion, continued use of antihypertensive and GI losses. Renal fct improving, creat 6.62. Documented urine output 2475cc last 24 hours. Continue IV fluids. Proteinuria, hematuria concerning for GN. Urine microscopy - tubular epithelial cells, monomorphic RBC's, TNTC RBC's, RBC casts, no nephrotic elements. GN workup in progress. Will watch over weekend, if no improvement will proceed with renal biopsy on Saturday. Patient in agreement. Qualifiers: Acute renal failure type: with acute tubular necrosis Qualified Code(s): N17.0 - Acute kidney failure with tubular necrosis Subjective Interval history: Sitting up in bed. States feeling good. Discussed GN work up in progress and most likely will need renal biopsy for definitive diagnosis. Patient agreeable to biopsy if needed. Objective - Vital Signs Vital signs: Vital Signs Temp Pulse Resp BP Pulse Ox 03/30/17 07:25 97.8 F 76 17 142/86 97 03/30/17 04:13 97.6 F 67 18 116/74 95 03/29/17 23:52 97.8 F 80 18 141/88 95 03/29/17 20:37 97.7 F 75 16 143/82 96 Intake and Output 03/29/17 03/30/17 03/30/17 23:59 07:59 15:59 Intake Total 1420 / 1420 500 / 500 Output Total 1175 / 1175 800 / 800 Balance 245 / 245 -300 / -300 Intake: IV Fluids 1000 / 1000 100 / 100 0.9 % Sodium Chloride 1, 1000 / 1000 100 / 100 000 ML @ 125 mls/hr IVC . Q8H [facility] Rx#:[id number] Oral 420 / 420 400 / 400 Output: Urine 1175 / 1175 800 / 800 Other: Meal Dinner Percent of Meal Consumed 75% # Voids 1 Weight 77.8 kg Blood Glucose* 133 123 Patient Weight 03/30/17 23:59 Weight 77.8 kg - General Appearance General appearance: Present: well-developed, well-nourished, appears started age EENT: Present: mucous membranes moist Neck: Present: no JVD Respiratory: Present: clear Cardiology: Present: no edema, regular rate, regular rhythm Gastrointestinal: Present: normoactive bowel sounds, no tenderness Integumentary: Present: warm and dry Neurologic: Present: alert and oriented x3 Psychiatric: Present: mood/affect appropriate, cooperative - Lab 03/30/17 06:52 03/30/17 06:52 Most recent lab results Calcium 7.9 mg/dL (8.6-10.8) L 03/30/17 06:52 Phosphorus 6.8 mg/dL (2.3-4.7) H 03/27/17 01:30 Magnesium 2.2 mg/dL (1.6-2.6) 03/27/17 06:05 Urine Creatinine 58 mg/dL 03/28/17 09:00 Ur Total Protein 24 Hr 1647 mg/day (0-299) H 03/28/17 09:00 Urine Total Protein 54 mg/dL (1-14) H 03/28/17 09:00 Consult Discharge Plan - Plan Referrals: Toby Shirley MD [Primary Care Provider] - (call appt. upon discharge)
--- NOTE | 2017-03-30 10:11 | Internal Med Progress Note ---
<Jose De Souza - Last Filed: 03/30/17 11:50> Date of Encounter: 03/30/17 Time of Encounter: 10:09 - Assessment and plan (1) Acute kidney failure Current Visit: Yes Status: Suspected Assessment and plan: - Kidney function continuing to slowly improve. - BUN/creatinine of 51/6.62 this morning, mild improved since yesterday, cr of 9 . Potassium 4.0 we will continue to monitor and hydrate - Urology consulted, appreciate recommendations. They have ordered additional testing to further evaluate cause of acute renal failure. - Analysis to this point has showed proteinurea, concerning for a possible glomerulonephritis underlying prerenal causes - Held lisinopril, metformin - Renal ultrasound revealed no evidence for hydronephrosis indicating postobstructive causes, he is normal in size indicating no fibrosis of the kidneys taking chronic kidney disease less likely - Per urology, continue to hydrate and monitor for improvement kidney functions. May need biopsy on Saturday if not enough improvement Qualifiers: Acute renal failure type: with acute tubular necrosis Qualified Code(s): N17.0 - Acute kidney failure with tubular necrosis (2) Alcohol abuse Current Visit: Yes Status: Chronic Assessment and plan: - CIWA protocol discontinued today Patient has not required Ativan for sedation since admission. 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 transplanted heart: [place] heart Associated angina: without angina Qualified Code(s): I25.10 - Atherosclerotic heart disease of [place] coronary artery without angina pectoris (5) Leukocytosis Current Visit: Yes Status: Acute Assessment and plan: Likely a reactive leukocytosis vs bleed vs infection - No complaints of cough, dysuria, pain, n/v/d today - UA negative for infection. - 12.4 today, increased from 10.4. - Will continue to monitor for now. Qualifiers: Leukocytosis type: unspecified Qualified Code(s): D72.829 - Elevated white blood cell count, unspecified (6) DVT prophylaxis Current Visit: Yes Status: Acute Assessment and plan: Heparin 5000 units subcutaneously - hematuria resolved. H&H has been stable - Time Spent With Patient 25 - 35 minutes - Subjective Interval history: Mr. Lopez was seen and examined at bedside this morning. No new complaints this morning. States he is doing well after garcia removal. No further episodes of abdominal pain, n/v, CP., SOB, CVA tenderness. - Constitutional Vitals: Temp Pulse Resp BP Pulse Ox 97.8 F 76 17 142/86 97 03/30/17 07:25 03/30/17 07:25 03/30/17 07:25 03/30/17 07:25 03/30/17 07:25 Exam: Gen.: Vitals noted. No acute distress. AAOx3 HEENT: PERRL/EOMI, oropharynx clear, Normocephalic, atraumatic Neck: Supple. No adenopathy. Cardiac: RRR, no murmur, +S1/S2 Pulmonary: CTA bilaterally, no wheezes, rales or rhonchi, equal chest expansion Abdomen: soft, nontender, BS noted, no guarding Back: Nontender throughout. : Garcia catheter removed. MSK: ROM intact, no joint swelling noted Extremities: no BLE edema, nontender calf, no cyanosis or clubbing Neuro: A&Ox3, moves all extremities, no focal deficits Psych: Appropriate mood and behavior Internal Medicine: Result - Labs CBC & Chem 7: 03/30/17 06:52 03/30/17 06:52 Labs: Short CBC 03/30/17 Range/Units 06:52 WBC 12.4 H (4.3-11.1) K/mcL Hgb 10.5 L (12.9-16.9) g/dL Hct 32.1 L (37.5-50.1) % Plt Count 332 (140-400) K/mcL BMP 03/30/17 06:52 Sodium 140 Potassium 4.0 Chloride 115 H Carbon Dioxide 16 L BUN 51 H Creatinine 6.62 H Glucose 119 H Calcium 7.9 L Consult Discharge Plan - Plan Referrals: Toby Shirley MD [Primary Care Provider] - (call appt. upon discharge) <Efren Perez T - Last Filed: 03/30/17 14:51> Date of Encounter: 03/30/17 - Constitutional Vitals: Temp Pulse Resp BP Pulse Ox 98.5 F 72 18 125/81 94 03/30/17 11:16 03/30/17 11:16 03/30/17 11:16 03/30/17 11:16 03/30/17 11:16 Internal Medicine: Result - Labs CBC & Chem 7: 03/30/17 06:52 03/30/17 06:52 Labs: Short CBC 03/30/17 Range/Units 06:52 WBC 12.4 H (4.3-11.1) K/mcL Hgb 10.5 L (12.9-16.9) g/dL Hct 32.1 L (37.5-50.1) % Plt Count 332 (140-400) K/mcL BMP 03/30/17 06:52 Sodium 140 Potassium 4.0 Chloride 115 H Carbon Dioxide 16 L BUN 51 H Creatinine 6.62 H Glucose 119 H Calcium 7.9 L - Attending Attestation I examined this patient and my medical decision-making was reviewed with the Resident Physician on 03/30/17. I agree with the documented findings, disposition and treatment plan as described except to the extent set forth below. Seen and evaluated at bedside with his family he denies new complains he is being managed for JACQUELINE, possibly combination of pre-renal and intrinsic, ATN, non-oliguric, medications (On metformin, diuretics, ARB at home) His renal function is much more improved Physical exam is unremarkable Labs and Imaging reviewed, patient has a new leukocytosis, he is hepatitis negative, complement levels are within normal limits. Other rheumatologic workup is pending. A/P JACQUELINE: Continue aggressive IVF hydration, follow proteinuria work up, tender to monitor intake and output, he is a renal biopsy on Saturday., nephrology is following. No evidence of post-renal cause. Leukocytosis is sporadic, patient is afebrile, he has no urinary or chest symptoms. We will continue to monitor. rest of details as in resident's documentation
[2017-03-30 13:55] LABS: Alpha 2 Globulin (PEP) 1.01 g/dL (0.48-1.05); Beta Globulin (PEP) 0.77 g/dL (0.48-1.10)
[2017-03-31] MEDS: *HR* Heparin 5,000 UNIT/ML VIAL SQ SCH ×4 (00:26→23:04)
[2017-03-31] MEDS: 0.9 % Sodium Chloride 1,000 ML IVC SCH ×4 (00:27→23:54)
[2017-03-31 07:18] LABS: Basophils # 0.1 K/mcL (0.0-0.2); Basophils % 0.8 %; Eosinophils # 0.5 K/mcL (0.0-0.6); Eosinophils % 3.7 %; Hematocrit 31.1 % (37.5-50.1); Hemoglobin 10.4 g/dL (12.9-16.9); Immature Granulocytes % 0.2 % (0-4); Lymphocytes # 2.2 K/mcL (0.6-4.6); Lymphocytes % 18.2 %; Mean Corpuscular HGB Conc 33.4 g/dL (31.6-35.5); Mean Corpuscular Hemoglobin 32.9 pg (28.0-33.3); Mean Corpuscular Volume 98.4 fL (83.0-100.0); Mean Platelet Volume 11.4 fL (9.4-12.4); Monocytes # 1.7 K/mcL (0.0-1.3); Monocytes % 13.9 %; Neutrophils # 7.8 K/mcL (1.6-8.9); Platelet Count 338 K/mcL (140-400); Red Blood Count 3.16 M/mcL (4.19-5.50); Red Cell Distribution Width 14.7 % (11.5-14.5); Segmented Neutrophils % 63.2 %
[2017-03-31 07:21] LABS: Calcium 7.9 mg/dL (8.6-10.8); Potassium 3.9 mEq/L (3.5-4.5)
[2017-03-31] MEDS: Insulin LISPRO 300 UNITS/3 ML VIAL SQ SCH ×4 (07:45→21:28)
[2017-03-31] MEDS: Aspirin Enteric Coated 81 MG Tablet PO SCH (07:51)
[2017-03-31] MEDS: amLODIPine 5 MG TABLET PO SCH (07:51)
[2017-03-31] MEDS: Metoprolol 100 MG TABLET PO SCH ×2 (07:51→21:12)
[2017-03-31 08:12] LABS: IFE Reflexed NOT DONE
[2017-03-31 08:13] LABS: Myeloperoxidase Ab 5 AU/mL (0-19); Serine Protease-3 Antibody 2 AU/mL (0-19)
[2017-03-31 08:17] LABS: ANA IgG by ELISA NONE DETECTED (None Detected)
--- NOTE | 2017-03-31 08:53 | Nephrology Progress Note ---
Date of Encounter: 03/31/17 Time of Encounter: 08:40 - Assessment and Plan (1) Acute kidney failure Current Visit: Yes Status: Suspected JACQUELINE most likely related to decreased oral intake, volume depletion, continued use of antihypertensive and GI losses. Renal fct improving, creat 4.53. Documented urine output 3700cc last 24 hours. Continue IV fluids. Proteinuria, hematuria concerning for GN. Urine microscopy - tubular epithelial cells, monomorphic RBC's, TNTC RBC's, RBC casts, no nephrotic elements. GN workup in progress. Will watch over weekend, if no improvement will proceed with renal biopsy on Saturday. Patient in agreement. Will repeat urine microscopy tomorrow, may be less ambiguous without hematuria. Qualifiers: Acute renal failure type: with acute tubular necrosis Qualified Code(s): N17.0 - Acute kidney failure with tubular necrosis Subjective Interval history: Sitting up in bed. States feeling good. States urine no longer hematuric. Discussed GN work up in progress and may need renal biopsy for definitive diagnosis. Patient agreeable to biopsy if needed. Objective - Vital Signs Vital signs: Vital Signs Temp Pulse Resp BP Pulse Ox 03/31/17 07:24 98.3 F 68 14 155/89 96 03/31/17 03:43 98.1 F 72 18 137/82 97 03/30/17 23:15 98.3 F 71 18 134/84 96 03/30/17 19:44 97.8 F 76 18 148/89 97 03/30/17 15:39 98.1 F 77 19 03/30/17 11:16 98.5 F 72 18 125/81 94 Intake and Output 03/30/17 03/31/17 03/31/17 23:59 07:59 15:59 Intake Total 1000 / 1000 1000 / 1000 Output Total 1250 / 1250 1800 / 1800 Balance -250 / -250 -800 / -800 Intake: IV Fluids 1000 / 1000 1000 / 1000 0.9 % Sodium Chloride 1, 1000 / 1000 1000 / 1000 000 ML @ 125 mls/hr IVC . Q8H [facility] Rx#:[id number] Oral 0 / 0 Output: Urine 1250 / 1250 1800 / 1800 Other: Meal Dinner Percent of Meal Consumed 75% Weight 77.02 kg Blood Glucose* 125 120 Patient Weight 03/31/17 23:59 Weight 77.02 kg - General Appearance General appearance: Present: well-developed, well-nourished, appears started age EENT: Present: mucous membranes moist Neck: Present: no JVD Respiratory: Present: clear Cardiology: Present: no edema, regular rate, regular rhythm Gastrointestinal: Present: normoactive bowel sounds, no tenderness Integumentary: Present: warm and dry Neurologic: Present: alert and oriented x3 Psychiatric: Present: mood/affect appropriate, cooperative - Lab 03/31/17 05:24 03/31/17 05:24 Most recent lab results Calcium 7.9 mg/dL (8.6-10.8) L 03/31/17 05:24 Phosphorus 6.8 mg/dL (2.3-4.7) H 03/27/17 01:30 Magnesium 2.2 mg/dL (1.6-2.6) 03/27/17 06:05 Urine Creatinine 58 mg/dL 03/28/17 09:00 Ur Total Protein 24 Hr 1647 mg/day (0-299) H 03/28/17 09:00 Urine Total Protein 54 mg/dL (1-14) H 03/28/17 09:00 Consult Discharge Plan - Plan Referrals: Toby Shirley MD [Primary Care Provider] - (call appt. upon discharge)
[2017-03-31] MEDS ORDERED: 0.9 % Sodium Chloride 1,000 ML IVC SCH (11:41)
--- NOTE | 2017-03-31 13:10 | Internal Med Progress Note ---
<AlmaJose mcfadden - Last Filed: 03/31/17 13:07> Date of Encounter: 03/31/17 Time of Encounter: 10:00 - Assessment and plan (1) Acute kidney failure Current Visit: Yes Status: Suspected Assessment and plan: - Kidney function continuing to slowly improve. - BUN/creatinine of 37/4.53 this morning, mild improved since yesterday, cr of 6.6 . Potassium 3.9 we will continue to monitor and hydrate - Analysis to this point has showed proteinurea, concerning for a possible glomerulonephritis underlying prerenal causes - Held lisinopril, metformin - Renal ultrasound revealed no evidence for hydronephrosis indicating postobstructive causes, he is normal in size indicating no fibrosis of the kidneys taking chronic kidney disease less likely - Dysuria in the setting of leukocytosis, UA ordered - Per urology, continue to hydrate and monitor for improvement kidney functions. May need biopsy on Saturday if not enough improvement Qualifiers: Acute renal failure type: with acute tubular necrosis Qualified Code(s): N17.0 - Acute kidney failure with tubular necrosis (2) Alcohol abuse Current Visit: Yes Status: Chronic Assessment and plan: - CIWA protocol discontinued today Patient has not required Ativan for sedation since admission. AOx3 Patient states his last drink was Saturday (3) Diabetes Current Visit: Yes Status: Chronic Assessment and plan: - Well Controlled since admission - Sliding insulin scale - Blood sugar this morning was 111, last A1c 6.2% earlier this month Qualifiers: Diabetes mellitus type: type 2 Diabetes mellitus complication status: with unspecified complications Diabetes mellitus snf insulin use: without exterminator helper use Qualified Code(s): E11.8 - Type 2 diabetes mellitus with unspecified complications (4) Coronary artery disease Current Visit: Yes Status: Chronic Assessment and plan: - Continue Crestor Qualifiers: Coronary Disease-Associated Artery/Lesion type: [place] artery [place] vs. transplanted heart: [place] heart Associated angina: without angina Qualified Code(s): I25.10 - Atherosclerotic heart disease of [place] coronary artery without angina pectoris (5) Leukocytosis Current Visit: Yes Status: Acute Assessment and plan: Likely a reactive leukocytosis vs bleed vs infection - No complaints of cough, pain, n/v/d today. Admits to some dysuria today - UA negative for infection admission, repeat UA ordered for this afternoon - 12.3 today, stable from 12.4 - We will follow up results of urinalysis. Treat accordingly Qualifiers: Leukocytosis type: unspecified Qualified Code(s): D72.829 - Elevated white blood cell count, unspecified (6) DVT prophylaxis Current Visit: Yes Status: Acute Assessment and plan: Heparin 5000 units subcutaneously - hematuria resolved. H&H has been stable - Time Spent With Patient less than 15 minutes - Subjective Interval history: Mr. Lopez was seen and examined at bedside this morning. No new complaints this morning. States he is doing well after garcia removal. No further episodes of abdominal pain, n/v, CP., SOB, CVA tenderness. He does admid to some dysuria, which he states he was experiencing before admission. - Constitutional Vitals: Temp Pulse Resp BP Pulse Ox 98.7 F 68 14 152/88 95 03/31/17 11:30 03/31/17 11:30 03/31/17 11:30 03/31/17 11:30 03/31/17 11:30 Exam: Gen.: Vitals noted. No acute distress. AAOx3 HEENT: PERRL/EOMI, oropharynx clear, Normocephalic, atraumatic Neck: Supple. No adenopathy. Cardiac: RRR, no murmur, +S1/S2 Pulmonary: CTA bilaterally, no wheezes, rales or rhonchi, equal chest expansion Abdomen: soft, nontender, BS noted, no guarding Back: Nontender throughout. MSK: ROM intact, no joint swelling noted Extremities: no BLE edema, nontender calf, no cyanosis or clubbing Neuro: A&Ox3, moves all extremities, no focal deficits Psych: Appropriate mood and behavior Internal Medicine: Result - Labs CBC & Chem 7: 03/31/17 05:24 03/31/17 05:24 Labs: Short CBC 03/31/17 Range/Units 05:24 WBC 12.3 H (4.3-11.1) K/mcL Hgb 10.4 L (12.9-16.9) g/dL Hct 31.1 L (37.5-50.1) % Plt Count 338 (140-400) K/mcL Neutrophils # 7.8 (1.6-8.9) K/mcL BMP 03/31/17 05:24 Sodium 142 Potassium 3.9 Chloride 114 H Carbon Dioxide 17 L BUN 37 H D Creatinine 4.53 H Glucose 111 H Calcium 7.9 L Consult Discharge Plan - Plan Referrals: Toby Shirley MD [Primary Care Provider] - (call appt. upon discharge) <Efren Perez - Last Filed: 03/31/17 13:41> Date of Encounter: 03/31/17 - Constitutional Vitals: Temp Pulse Resp BP Pulse Ox 98.7 F 68 14 152/88 95 03/31/17 11:30 03/31/17 11:30 03/31/17 11:30 03/31/17 11:30 03/31/17 11:30 Internal Medicine: Result - Labs CBC & Chem 7: 03/31/17 05:24 03/31/17 05:24 Labs: Short CBC 03/31/17 Range/Units 05:24 WBC 12.3 H (4.3-11.1) K/mcL Hgb 10.4 L (12.9-16.9) g/dL Hct 31.1 L (37.5-50.1) % Plt Count 338 (140-400) K/mcL Neutrophils # 7.8 (1.6-8.9) K/mcL BMP 03/31/17 05:24 Sodium 142 Potassium 3.9 Chloride 114 H Carbon Dioxide 17 L BUN 37 H D Creatinine 4.53 H Glucose 111 H Calcium 7.9 L - Attending Attestation I examined this patient and my medical decision-making was reviewed with the Resident Physician on 03/31/17. I agree with the documented findings, disposition and treatment plan as described except to the extent set forth below. Seen and evaluated at bedside Complains of mild dysuria, afebrile. Leukocytosis is persistent, JACQUELINE is improving. He is being managed for JACQUELINE, possibly combination of pre-renal and intrinsic, ATN, non-oliguric, medications (On metformin, diuretics, ARB at home) His renal function is much more improved Physical exam is unremarkable I/O : Negative Labs and Imaging reviewed, patient has a persistent leukocytosis, and he is hepatitis negative, complement levels are within normal limits. Other rheumatologic workup is pending. A/P JACQUELINE: Continue aggressive IVF hydration, follow proteinuria work up, monitor intake and output, he is polyuric at this time, monitor electrolytes, he is for renal biopsy on Saturday. Nephrology is following. No evidence of post-renal cause. Leukocytosis is persistent, send UA and culture, patient has dysuria Rest of details as in resident's documentation
[2017-03-31 13:45] LABS: Bilirubin,Urine Negative (Negative); Blood,Urine Moderate (Negative); Clarity,Urine Cloudy (Clear); Color,Urine Yellow (Yellow); Glucose,Urine (UA) Normal (Normal); Ketones,Urine Negative (Negative); Leukocyte Esterase,Urine Negative (Negative); Nitrite,Urine Negative (Negative); Protein,Urine Negative (Neg-Trace); Specific Gravity,Urine 1.012 (1.010-1.025); Urobilinogen,Urine Normal (Normal)
[2017-03-31 13:50] LABS: Bacteria,Urine Many per hpf (None-Few); Hyaline Casts,Urine None Seen per lpf (None-Few); RBC,Urine 15-30 per hpf (0-3); Squamous Epithelial Cell,Urine Few per lpf (None-Few); WBC,Urine 0-3 per hpf (0-3)
[2017-03-31 22:30] LABS: Urine Collection Duration RANDOM hr; Urine Collection Volume RANDOM mL
[2017-04-01 06:00] LABS: Hematocrit 30.8 % (37.5-50.1); Hemoglobin 10.1 g/dL (12.9-16.9); Mean Corpuscular HGB Conc 32.8 g/dL (31.6-35.5); Mean Corpuscular Hemoglobin 31.9 pg (28.0-33.3); Mean Corpuscular Volume 97.2 fL (83.0-100.0); Mean Platelet Volume 11.1 fL (9.4-12.4); Platelet Count 359 K/mcL (140-400); Red Blood Count 3.17 M/mcL (4.19-5.50); Red Cell Distribution Width 14.6 % (11.5-14.5)
[2017-04-01 06:17] LABS: Calcium 7.8 mg/dL (8.6-10.8); Potassium 3.6 mEq/L (3.5-4.5)
[2017-04-01 07:35] VITALS: BP 149/88
[2017-04-01] MEDS: Aspirin Enteric Coated 81 MG Tablet PO SCH (07:49)
[2017-04-01] MEDS: Insulin LISPRO 300 UNITS/3 ML VIAL SQ SCH ×2 (07:49→11:23)
[2017-04-01] MEDS: *HR* Heparin 5,000 UNIT/ML VIAL SQ SCH (07:50)
[2017-04-01] MEDS: Metoprolol 100 MG TABLET PO SCH (07:50)
[2017-04-01] MEDS: 0.9 % Sodium Chloride 1,000 ML IVC SCH (08:38)
[2017-04-01] MEDS ORDERED: amLODIPine 5 MG TABLET PO SCH (09:00)
--- NOTE | 2017-04-01 09:01 | Nephrology Progress Note ---
Date of Encounter: 04/01/17 Time of Encounter: 08:40 - Assessment and Plan (1) Acute kidney failure Current Visit: Yes Status: Suspected JACQUELINE most likely related to decreased oral intake, volume depletion, continued use of antihypertensive and GI losses. Renal fct improving, creat 3.33. Proteinuria, hematuria concerning for GN. However GN workup no significant findings Initial urine microscopy - tubular epithelial cells, monomorphic RBC's , TNTC RBC's, RBC casts, no nephrotic elements. Will repeat urine microscopy in office today, may be less ambiguous without hematuria. Renal biopsy on hold. Can be discharged home from [facility] with weekly RFP and F/U in office in 2-3 weeks. Qualifiers: Acute renal failure type: with acute tubular necrosis Qualified Code(s): N17.0 - Acute kidney failure with tubular necrosis Subjective Interval history: Sitting up in bed. States feeling good. States urine no longer hematuric. at bedside. Discussed discharging home, with serial labs and F/U in office. Renal biopsy on hold. Objective - Vital Signs Vital signs: Vital Signs Temp Pulse Resp BP Pulse Ox 04/01/17 07:28 98.0 F 67 14 149/88 97 04/01/17 03:27 97.8 F 65 16 163/80 97 03/31/17 23:18 97.8 F 70 16 147/89 96 03/31/17 19:44 98.1 F 68 18 158/89 97 03/31/17 16:30 97.7 F 68 14 143/86 96 03/31/17 11:30 98.7 F 68 14 152/88 95 Intake and Output 03/31/17 04/01/17 04/01/17 23:59 07:59 15:59 Intake Total 2240 / 2240 1060 / 1060 Output Total 1500 / 1500 840 / 840 1000 / 1000 Balance 740 / 740 220 / 220 -1000 / -1000 Intake: IV Fluids 1999 / 1999 1000 / 1000 0.9 % Sodium Chloride 1, 1999 / 1999 1000 / 1000 000 ML @ 125 mls/hr IVC . Q8H [facility] Rx#:[id number] Oral 240 / 240 60 / 60 Output: Urine 1500 / 1500 840 / 840 Catheter 1000 / 1000 Other: Meal Dinner Percent of Meal Consumed 100% Weight 74.843 kg Blood Glucose* 165 130 Patient Weight 04/01/17 23:59 Weight 74.843 kg - General Appearance General appearance: Present: well-developed, well-nourished, appears started age EENT: Present: mucous membranes moist Neck: Present: no JVD Respiratory: Present: clear Cardiology: Present: no edema, regular rate, regular rhythm Gastrointestinal: Present: normoactive bowel sounds, no tenderness Integumentary: Present: warm and dry Neurologic: Present: alert and oriented x3 Psychiatric: Present: mood/affect appropriate, cooperative - Lab 04/01/17 05:32 04/01/17 05:32 Most recent lab results Calcium 7.8 mg/dL (8.6-10.8) L 04/01/17 05:32 Phosphorus 6.8 mg/dL (2.3-4.7) H 03/27/17 01:30 Magnesium 2.2 mg/dL (1.6-2.6) 03/27/17 06:05 Urine Creatinine 58 mg/dL 03/28/17 09:00 Ur Total Protein 24 Hr 1647 mg/day (0-299) H 03/28/17 09:00 Urine Total Protein SEE NOTE mg/d (10-140) 03/28/17 13:20 Consult Discharge Plan - Plan Referrals: Toby Shirley MD [Primary Care Provider] - (call appt. upon discharge)
--- NOTE | 2017-04-01 15:26 | Discharge Summary ---
<Gudelia Felipe - Last Filed: 04/01/17 15:23> Date of Encounter: 04/01/17 Time of Encounter: 09:00 - Discharge Diagnosis (1) Acute kidney failure Priority: Primary Status: Suspected Qualifiers: Acute renal failure type: with acute tubular necrosis Qualified Code(s): N17.0 - Acute kidney failure with tubular necrosis (2) Alcohol abuse Priority: Secondary Status: Chronic (3) Diabetes Priority: Secondary Status: Chronic Qualifiers: Diabetes mellitus type: type 2 Diabetes mellitus complication status: with unspecified complications Diabetes mellitus retirement insulin use: without retirement use Qualified Code(s): E11.8 - Type 2 diabetes mellitus with unspecified complications (4) Coronary artery disease Priority: Secondary Status: Chronic Qualifiers: Coronary Disease-Associated Artery/Lesion type: grayling artery [place] vs. transplanted heart: grayling heart Associated angina: without angina Qualified Code(s): I25.10 - Atherosclerotic heart disease of grayling coronary artery without angina pectoris (5) Leukocytosis Priority: Secondary Status: Acute Qualifiers: Leukocytosis type: unspecified Qualified Code(s): D72.829 - Elevated white blood cell count, unspecified (6) DVT prophylaxis Priority: Secondary Status: Acute - Discharge Medications Home Medications: Aspirin [Lo-Dose Aspirin EC] 81 mg PO DAILY 03/27/17 [History] Carvedilol [Coreg] 25 mg PO BID 03/27/17 [History] Escitalopram [Lexapro] 20 mg PO DAILY 03/27/17 [History] Insulin Glargine,Hum.rec.anlog [Basaglar Kwikpen U-100] 24 unit SQ HS 03/27/17 [ History] Loratadine/Pseudophed (12 HR) [Claritin D (12HR)] 1 tab PO BID 03/27/17 [History ] Losartan Potassium [Cozaar] 100 mg PO DAILY 03/27/17 [History] Rosuvastatin [Crestor] 20 mg PO HS 03/27/17 [History] amLODIPine [Norvasc] 5 mg PO DAILY 03/27/17 [History] hydroCHLOROthiazide [Hydrochlorothiazide] 25 mg PO DAILY 03/27/17 [History] metFORMIN [Glucophage] 1,000 mg PO BIDWM 03/27/17 [History] Allergies/Adverse Reactions: Allergies Penicillins [PCN] Allergy (Verified 03/27/17 00:32) Rash Date of admission: 03/29/17 12:21 Primary care physician: Toby Shirley MD Consults: 03/27/17 01:09 Consult to Nephrology [CONS] Routine Consulting Provider: [facility] Bianca SHAY Reason for Consult: Kidney failure Cr. 12, GFR 4, transfered from [facility] Call Completed: No 03/27/17 01:20 Consult to [employer] [CONS] Routine Reason for SW Consult: EtOH - Patient Status Disposition: Home, Self-Care Condition: Good Functional capacity at discharge: independent ambulation Overall status at discharge: patient is progressing back to baseline - Discharge Instructions Follow Up With: Toby Shirley MD [Primary Care Provider] - (call appt. upon discharge) Carlton Shay DO [Non-Partnered Physician] - Additional Instructions: Follow up with PCP within 1 week of discharge Please get basic metabolic panel drawn tomorrow morning. Please drink plenty of water Ambulate as tolerated. follow up with nephrology within 1 week of discharge. - Diet and Activity Activity: increase activity as tolerated Diet: low fat, low cholesterol Hospital course: Mr. Lopez is a 52 year old male with PMHx of CAD (s/p stent placement x2), HLD, HTN, alcohol abuse, COPD, DM, renal disease. He presented to [facility] on 03/27/17 as a trasfer from [facility] due to Cr of 12.04 and GFR of 4. About four days prior to presentation, patient was not feeling well. He was complaining of abdominal discomfort, bloating, nausea, vomiting, diarrhea. Patient stated that he also drinks vodka and beer daily. He had very low appetite and stated he was not eating or drinking very much at all. He denies prior history of renal failure. His kidney function was normal prior to presentation. He denies eating anything out of the ordinary. He was treated with IV hydration. Patient was placed on CIWA protocol due to his history of alcohol abuse, and showed no signs of withdrawal. he had a retroperitoneal ultrasound done, which showed no hydronephrosis to account for renal failure. nephrology was consulted upon admission. patient had borderline leukocytosis, which was likely reactive due to stress, JACQUELINE. He did not show any signs of infection. throughout the course of his hospital stay, patient's kidney function continued to improve drastically. his Creatinine decreased from 12.04 upon admission to 3.33 with aggressive IV hydration. his urinalysis showed signs of proteinuria and hematuria, and there was concern for possible glomerulonephritis. recommendation per nephrology was to continue IV hydration. his JACQUELINE was most likely related to decreased oral intake, volume depletion, and GI losses. renal biopsy was considered, but it was recommended that this be done as outpatient basis. He will follow up with nephrology on an outpatient basis, and repeat BMP will be ordered for day after discharge, and for two weeks until follow up with nephrology. Patient was stable on day of discharge and remained stable. Plan: Follow up with PCP within 1 week of discharge Please get basic metabolic panel drawn tomorrow morning. Please drink plenty of water Ambulate as tolerated. follow up with nephrology within 1 week of discharge. - Time Spent with Patient Total time spent providing and/or coordinating discharge services: - Constitutional Vitals: Temp Pulse Resp BP Pulse Ox 98.0 F 67 14 149/88 97 04/01/17 07:28 04/01/17 07:28 04/01/17 07:28 04/01/17 07:28 04/01/17 07:28 General appearance: Present: A&O X 3, pleasant, no acute distress - Head Head exam: Present: atraumatic, normocephalic - Respiratory Respiratory exam: Present: CTAB - Cardiovascular Cardiovascular exam: Present: RRR, +S1, +S2 - GI/Abdominal GI/Abdominal exam: Present: normal bowel sounds, soft. Absent: distended, tenderness - Extremities Exam Extremities exam: Absent: cyanotic, pedal edema - Psychiatric Psychiatric exam: Present: normal affect, normal mood - Skin Skin exam: Present: intact <Efren Perez - Last Filed: 04/01/17 16:41> Date of Encounter: 04/01/17 Date of admission: 03/29/17 12:21 Primary care physician: Toby Shirley MD Consults: 03/27/17 01:09 Consult to Nephrology [CONS] Routine Consulting Provider: [facility] LAURITA Reason for Consult: Kidney failure Cr. 12, GFR 4, transfered from [facility] Call Completed: No 03/27/17 01:20 Consult to [employer] [CONS] Routine Reason for SW Consult: EtOH Hospital course: Mr. Lopez is a 52 year old male - Time Spent with Patient Total time spent providing and/or coordinating discharge services: - Constitutional Vitals: Temp Pulse Resp BP Pulse Ox 98.0 F 67 14 149/88 97 04/01/17 07:28 04/01/17 07:28 04/01/17 07:28 04/01/17 07:28 04/01/17 07:28 - Attending Attestation I examined this patient and my medical decision-making was reviewed with the Resident Physician on 04/01/17. I agree with the documented findings, disposition and treatment plan as described except to the extent set forth below. Patient was admitted and managed for acute non-oliguric pre-renal and intrinsic JACQUELINE His renal function has improved with IVF and continues to improve He has hematuria and proteinuria, proteinuria work up negative till date He had persistent leukocytosis without any evidence of infection HE was co-managed with nephrology, with recommendations for possible out- patient biopsy and follow up His physical exam is unremarkable He is clinically stable for discharge Rest of details as in resident physician's documentation
== END 2017-04-01 16:04 | disposition home or self-care (01) | DRG 684 ==
LOC: 2ANU
PROVIDERS: ADMIT Internal Medicine; ATTEND Internal Medicine

== ENCOUNTER 2021-03-20 16:04 | Inpatient (IN) ==
[2021-03-20 18:09] LABS: Basophils # 0.1 K/mcL (0.0-0.2); Basophils % 0.7 %; Eosinophils % 0.1 %; Hematocrit 37.4 % (37.5-50.1); Hemoglobin 12.9 g/dL (12.9-16.9); Immature Granulocytes % 0.2 % (0-4); Lymphocytes # 2.1 K/mcL (0.6-4.6); Mean Corpuscular HGB Conc 34.5 g/dL (31.6-35.5); Mean Corpuscular Volume 98.7 fL (83.0-100.0); Mean Platelet Volume 10.5 fL (9.4-12.4); Monocytes # 0.5 K/mcL (0.0-1.3); Neutrophils # 6.3 K/mcL (1.6-8.9); Platelet Count 239 K/mcL (140-400); Red Blood Count 3.79 M/mcL (4.19-5.50); Red Cell Distribution Width 13.5 % (11.5-14.5); White Blood Count 8.9 K/mcL (4.3-11.1)
[2021-03-20 18:30] LABS: Alanine Aminotransferase 237 Units/L (7-52); Albumin 3.5 g/dL (3.5-5.7); Albumin/Globulin Ratio 1.1 (1.1-2.2); Alkaline Phosphatase 128 Units/L (34-104); Aspartate Amino Transferase 682 Units/L (13-39); BUN/Creatinine Ratio 17 (6-26); Bilirubin,Total 0.9 mg/dL (0.3-1.0); Blood Urea Nitrogen 34 mg/dL (6-20); Calcium 8.7 mg/dL (8.6-10.3); Carbon Dioxide 22 mEq/L (23-29); Chloride 95 mEq/L (98-107); Globulin 3.1 g/dL (2.4-3.5); Glucose 234 mg/dL (70-105); Osmolality,Calculated 285 (280-300); Potassium 3.6 mEq/L (3.5-5.1); Sodium 130 mEq/L (136-145); Total Protein 6.6 g/dL (6.4-8.9); Troponin I < 0.03 ng/mL (< 0.04); eGFR For African Americans 41 (> 60); eGFR For Non-African Americans 34 (> 60)
[2021-03-20 19:21] LABS: Bilirubin,Direct 0.4 mg/dL (0.0-0.2); Bilirubin,Indirect 0.5 mg/dL (0.0-1.0); Lipase 203 Units/L (11-82); Thyroid Stimulating Hormone 1.596 mcIU/mL (0.340-5.600)
[2021-03-20 19:22] LABS: INR 1.1; Prothrombin Time 13.1 Seconds (9.4-12.1)
[2021-03-20 19:25] LABS: Activated Partial Thrombo Time 24.1 Seconds (26.0-36.0)
[2021-03-20] MEDS ORDERED: 0.9 % Sodium Chloride 1,000 ML IVC ONE ×2 (19:39→19:55)
[2021-03-20 20:24] LABS: Amorphous Sediment,Urine Few per hpf (None-Few); Bilirubin,Urine Negative (Negative); Blood,Urine Small (Negative); Clarity,Urine Turbid (Clear); Color,Urine Yellow (Yellow); Glucose,Urine (UA) 300 mg/dL (Normal); Granular Casts,Urine Many per lpf (None Seen); Hyaline Casts,Urine Many per lpf (None Seen); Ketones,Urine Negative (Negative); Leukocyte Esterase,Urine Negative (Negative); Mucus,Urine Few per lpf (None-Few); Nitrite,Urine Negative (Negative); Protein,Urine 100 mg/dL (Neg-Trace); Specific Gravity,Urine 1.018 (1.010-1.025); Urobilinogen,Urine Normal (Normal)
[2021-03-20] MEDS ORDERED: *HR* LORazepam 2 MG/ML VIAL IVP PRN ×3 (21:17)
[2021-03-20] MEDS ORDERED: Thiamine (B-1) 100 MG, Folic Acid 1 MG, MVI, adult with vitamin K 10 ML in 0.9 % Sodi... IVPB ONE (21:20)
[2021-03-20] MEDS ORDERED: Ondansetron 4 MG/2 ML VIAL IVP PRN (22:27)
[2021-03-20] MEDS ORDERED: Naloxone 0.4 MG/ML INJ IVP PRN (22:27)
[2021-03-20] MEDS ORDERED: D5% in Water 1,000 ML IVC PRN (23:48)
[2021-03-20] MEDS ORDERED: *HR* Dextrose 50 % in Water (Vial) 50 ML VIAL IVP PRN (23:48)
[2021-03-20] MEDS ORDERED: Dextrose Gel 15 GM/37.5 ML TUBE PO PRN ×2 (23:48)
[2021-03-20] MEDS: 0.9 % Sodium Chloride 1,000 ML IVC SCH (23:57)
[2021-03-21 00:34] LABS: Basophils % 0.4 %; Eosinophils # 0.1 K/mcL (0.0-0.6); Eosinophils % 0.6 %; Hematocrit 31.2 % (37.5-50.1); Immature Granulocytes % 0.3 % (0-4); Lymphocytes # 1.8 K/mcL (0.6-4.6); Lymphocytes % 19.6 %; Mean Corpuscular HGB Conc 34.6 g/dL (31.6-35.5); Mean Corpuscular Hemoglobin 33.9 pg (28.0-33.3); Mean Corpuscular Volume 97.8 fL (83.0-100.0); Mean Platelet Volume 10.2 fL (9.4-12.4); Monocytes # 0.5 K/mcL (0.0-1.3); Monocytes % 5.5 %; Neutrophils # 6.8 K/mcL (1.6-8.9); Platelet Count 202 K/mcL (140-400); Red Blood Count 3.19 M/mcL (4.19-5.50); Red Cell Distribution Width 13.6 % (11.5-14.5); Segmented Neutrophils % 73.6 %; White Blood Count 9.3 K/mcL (4.3-11.1)
[2021-03-21 00:36] LABS: Hemoglobin 10.8 g/dL (12.9-16.9)
[2021-03-21] MEDS: Insulin LISPRO 300 UNITS/3 ML VIAL SUBQ SCH ×4 (00:36→18:00)
[2021-03-21 00:44] LABS: INR 1.1
[2021-03-21 01:08] LABS: Alanine Aminotransferase 261 Units/L (7-52); Albumin 2.9 g/dL (3.5-5.7); Albumin/Globulin Ratio 1.2 (1.1-2.2); Alkaline Phosphatase 105 Units/L (34-104); Aspartate Amino Transferase 896 Units/L (13-39); BUN/Creatinine Ratio 15 (6-26); Blood Urea Nitrogen 26 mg/dL (6-20); Calcium 7.2 mg/dL (8.6-10.3); Carbon Dioxide 18 mEq/L (23-29); Chloride 103 mEq/L (98-107); Chol/HDL Ratio 11.9 (0-4.9); Cholesterol 179 mg/dL (< 200); Globulin 2.4 g/dL (2.4-3.5); Glucose 80 mg/dL (70-105); HDL Cholesterol 15 mg/dL (40-59); Magnesium 1.4 mg/dL (1.6-2.6); Osmolality,Calculated 280 (280-300); Potassium 3.7 mEq/L (3.5-5.1); Sodium 133 mEq/L (136-145); Total Protein 5.3 g/dL (6.4-8.9); Triglycerides 1498 mg/dL (< 150); eGFR For African Americans 51 (> 60); eGFR For Non-African Americans 42 (> 60)
[2021-03-21] MEDS: 0.9 % Sodium Chloride 1,000 ML IVC SCH (08:29)
[2021-03-21] MEDS: Calcium Gluconate 1gm/50mL 1 GM/50 ML BAG IVPB SCH ×2 (11:07→11:28)
[2021-03-21] MEDS ORDERED: Insulin LISPRO 300 UNITS/3 ML VIAL SUBQ SCH (21:00)
[2021-03-21] MEDS ORDERED: traZODone 50 MG TABLET PO PRN (23:39)
[2021-03-22] MEDS ORDERED: Insulin Human Regular 10 UNIT in 0.9 % Sodium Chloride 10 ML IV ONE ×2 (00:47→16:47)
[2021-03-22] MEDS: Insulin LISPRO 300 UNITS/3 ML VIAL SUBQ SCH ×3 (05:48→16:48)
[2021-03-22] MEDS: Cyanocobalamin (B-12) 1,000 MCG TABLET PO SCH (08:05)
[2021-03-22] MEDS: BuPROPion XL (24 HR) 150 MG TABLET PO SCH (08:05)
[2021-03-22] MEDS: Aspirin Enteric Coated 81 MG Tablet PO SCH (08:05)
[2021-03-22] MEDS ORDERED: (Empagliflozin [Jardiance] 25 MG Tablet) PO SCH (09:00)
[2021-03-22] MEDS: Fenofibrate 54 MG TABLET PO SCH (09:26)
[2021-03-22 10:51] LABS: Hematocrit 31.1 % (37.5-50.1); Mean Corpuscular HGB Conc 35.4 g/dL (31.6-35.5); Mean Corpuscular Hemoglobin 34.1 pg (28.0-33.3); Mean Corpuscular Volume 96.3 fL (83.0-100.0); Mean Platelet Volume 10.7 fL (9.4-12.4); Platelet Count 179 K/mcL (140-400); Red Blood Count 3.23 M/mcL (4.19-5.50); Red Cell Distribution Width 13.2 % (11.5-14.5); White Blood Count 7.7 K/mcL (4.3-11.1)
[2021-03-22 11:10] LABS: Alanine Aminotransferase 218 Units/L (7-52); Albumin 2.9 g/dL (3.5-5.7); Albumin/Globulin Ratio 1.1 (1.1-2.2); Alkaline Phosphatase 129 Units/L (34-104); Aspartate Amino Transferase 440 Units/L (13-39); BUN/Creatinine Ratio 9 (6-26); Bilirubin,Total 0.8 mg/dL (0.3-1.0); Blood Urea Nitrogen 12 mg/dL (6-20); Calcium 7.9 mg/dL (8.6-10.3); Carbon Dioxide 27 mEq/L (23-29); Chloride 104 mEq/L (98-107); Globulin 2.6 g/dL (2.4-3.5); Glucose 157 mg/dL (70-105); Osmolality,Calculated 285 (280-300); Potassium 3.1 mEq/L (3.5-5.1); Sodium 136 mEq/L (136-145); Total Protein 5.5 g/dL (6.4-8.9); Triglycerides 497 mg/dL (< 150); eGFR For African Americans > 60 (> 60); eGFR For Non-African Americans 52 (> 60)
[2021-03-22] MEDS ORDERED: Insulin DETEMIR 100 UNIT/ML X5UNITS SUBQ SCH (21:00)
[2021-03-23 03:43] LABS: Basophils # 0.1 K/mcL (0.0-0.2); Basophils % 0.6 %; Eosinophils # 0.1 K/mcL (0.0-0.6); Eosinophils % 1.2 %; Hematocrit 30.6 % (37.5-50.1); Hemoglobin 10.6 g/dL (12.9-16.9); Immature Granulocytes % 1.3 % (0-4); Lymphocytes # 3.1 K/mcL (0.6-4.6); Lymphocytes % 34.2 %; Mean Corpuscular HGB Conc 34.6 g/dL (31.6-35.5); Mean Corpuscular Hemoglobin 33.7 pg (28.0-33.3); Mean Corpuscular Volume 97.1 fL (83.0-100.0); Mean Platelet Volume 11.4 fL (9.4-12.4); Monocytes # 0.5 K/mcL (0.0-1.3); Monocytes % 5.1 %; Neutrophils # 5.2 K/mcL (1.6-8.9); Nucleated Red Blood Cells 0.3 /100 WBC (0); Platelet Count 180 K/mcL (140-400); Red Blood Count 3.15 M/mcL (4.19-5.50); Red Cell Distribution Width 13.4 % (11.5-14.5); Segmented Neutrophils % 57.6 %
[2021-03-23 04:03] LABS: Alanine Aminotransferase 206 Units/L (7-52); Albumin/Globulin Ratio 1.1 (1.1-2.2); Alkaline Phosphatase 122 Units/L (34-104); Aspartate Amino Transferase 330 Units/L (13-39); BUN/Creatinine Ratio 10 (6-26); Bilirubin,Total 0.7 mg/dL (0.3-1.0); Blood Urea Nitrogen 13 mg/dL (6-20); Calcium 8.2 mg/dL (8.6-10.3); Carbon Dioxide 27 mEq/L (23-29); Chloride 104 mEq/L (98-107); Globulin 2.8 g/dL (2.4-3.5); Glucose 134 mg/dL (70-105); Osmolality,Calculated 288 (280-300); Potassium 2.6 mEq/L (3.5-5.1); Sodium 138 mEq/L (136-145); Total Protein 5.8 g/dL (6.4-8.9); eGFR For African Americans > 60 (> 60); eGFR For Non-African Americans 59 (> 60)
[2021-03-23] MEDS ORDERED: Insulin LISPRO 300 UNITS/3 ML VIAL SUBQ SCH (07:30)
[2021-03-23] MEDS: Cyanocobalamin (B-12) 1,000 MCG TABLET PO SCH (08:10)
[2021-03-23] MEDS: Fenofibrate 54 MG TABLET PO SCH (08:10)
[2021-03-23] MEDS: Aspirin Enteric Coated 81 MG Tablet PO SCH (08:10)
[2021-03-23] MEDS: BuPROPion XL (24 HR) 150 MG TABLET PO SCH (08:10)
[2021-03-23] MEDS: Insulin LISPRO 300 UNITS/3 ML VIAL SUBQ SCH ×2 (12:18→16:53)
[2021-03-23] MEDS ORDERED: Insulin DETEMIR 100 UNIT/ML X5UNITS SUBQ SCH (21:00)
[2021-03-24 03:58] LABS: BUN/Creatinine Ratio 6 (6-26); Blood Urea Nitrogen 7 mg/dL (6-20); Calcium 8.6 mg/dL (8.6-10.3); Carbon Dioxide 25 mEq/L (23-29); Chloride 103 mEq/L (98-107); Glucose 132 mg/dL (70-105); Magnesium 1.2 mg/dL (1.6-2.6); Osmolality,Calculated 284 (280-300); Sodium 137 mEq/L (136-145); eGFR For African Americans > 60 (> 60); eGFR For Non-African Americans > 60 (> 60)
[2021-03-24] MEDS: Insulin LISPRO 300 UNITS/3 ML VIAL SUBQ SCH ×2 (07:22→10:28)
[2021-03-24] MEDS ORDERED: *HR* Midazolam HCl 2 MG/2 ML VIAL ONE (07:59)
[2021-03-24] MEDS ORDERED: Lidocaine -MPF 2% 2 ML VIAL ONE (07:59)
[2021-03-24] MEDS ORDERED: *HR* FentaNYL (PF) 100 MCG/2 ML VIAL ONE ×2 (07:59→11:01)
[2021-03-24] MEDS ORDERED: *HR* Propofol 200 MG/20 ML VIAL IVP ONE ×2 (07:59)
[2021-03-24] MEDS: BuPROPion XL (24 HR) 150 MG TABLET PO SCH (09:32)
[2021-03-24] MEDS: Aspirin Enteric Coated 81 MG Tablet PO SCH (09:32)
[2021-03-24] MEDS: Fenofibrate 54 MG TABLET PO SCH (09:32)
[2021-03-24] MEDS: Cyanocobalamin (B-12) 1,000 MCG TABLET PO SCH (09:32)
[2021-03-24 11:14] VITALS: O2SAT 97
[2021-03-24 12:21] VITALS: PULSE 80; TEMP 98.5
[2021-03-24 12:31] VITALS: BP 122/82
== END 2021-03-24 15:21 | disposition home or self-care (01) | DRG 897 ==
LOC: EMEROOARM 16:04 → 2ANU 16:04 → SUATTDRO 22:00 → 2ANU 22:46
PROVIDERS: ADMIT Internal Medicine; ATTEND Internal Medicine
PROC: ENDOEBX (2021-03-24 08:00)